=== PATIENT | female | born 1975 | race Caucasian/White ===

== ENCOUNTER 2016-11-27 10:41 | Inpatient (IN) ==
[2016-11-27] MEDS ORDERED: SOLU-MEDROL IV ONE (10:51)
[2016-11-27] MEDS ORDERED: DUONEB (A & A) INH ONE (10:51)
[2016-11-27] MEDS ORDERED: ZOFRAN IV ONE (10:51)
[2016-11-27] MEDS ORDERED: DUONEB (A & A) ONE (10:55)
[2016-11-27 11:16] LABS: ALLEN TEST NO; BE 10.7 mmoll (-3.0-3.0); BLOOD TYPE ARTERIAL; DRAW SITE R BRACHIAL; METHB 1.1 % (0.0-1.5); O2(CT) 16.1 mL/dL (15.0-23.0); SAMPLE BLOOD; SAO2 82.2 % (95.0-100.0); THB 15.1 g/dL (11.5-17.4); pH(98.6) 7.37 (7.35-7.45)
[2016-11-27 11:17] LABS: MODALITY CANNULA
[2016-11-27 11:20] LABS: PCO2(98.6) 68 mmHg (35-45); PO2(98.6) 43 mmHg (60-100)
[2016-11-27 11:25] LABS: BASO% 0.3 % (0.0-0.8); EOS# 0.93 X1000 (0.0-0.7); EOS% 5.3 % (0.0-10.0); HEMATOCRIT 54.9 % (37.0-47.0); HEMOGLOBIN 15.2 g/dL (12.0-16.0); LYMPH# 2.34 X1000 (1.2-3.4); LYMPH% 13.3 % (20.5-51.1); MANUAL DIFF NEEDED? NO; MCH 22.8 PG (27-31); MCHC 27.7 g/dL (33-37); MCV 82.4 FL (81-99); MONO% 5.7 % (1.7-9.3); MPV 9.7 FL (7.4-10.4); NEUT% 75.4 % (42.2-75.2); PLT 236 X1000 (130-400); RBC 6.66 XMIL (4.2-5.4)
[2016-11-27 11:37] LABS: INR 1.02; PROTIME 10.7 Seconds (9.2-11.7); PTT 27.5 Seconds (22.0-36.0)
[2016-11-27 11:48] LABS: AGAP 8; ALBUMIN 3.6 g/dL (3.5-5.0); ALKALINE PHOSPHATASE 134 U/L (32-104); BUN 10 mg/dL (8-22); CALCIUM 9.2 mg/dL (8.8-10.2); CHLORIDE 95 mmol/L (98-107); CK PROFILE 32 U/L (24-173); COSMO 277; GOT 13 U/L (10-30); GPT 10 U/L (10-36); MAGNESIUM 2.4 mg/dL (1.5-2.7); POTASSIUM 4.3 mmol/L (3.5-5.1); SODIUM 139 mmol/L (136-145); TCO2 36 mmol/L (25-35); TOTAL BILIRUBIN 0.33 mg/dL (0.20-1.00); TOTAL PROTEIN 6.9 g/dL (6.3-8.3)
--- NOTE | 2016-11-27 13:01 | Diag Imaging Result Doc PS360 ---
EXAM: FLAT/UPRIGHT ABD/1 VIEW CHEST INDICATION: Abd pain/hernia, SOB TECHNIQUE: 3 views COMPARISON: Chest radiograph dated 06/11/2016 FINDINGS: There are nonspecific bowel gas patterns. There is probably patchy small bowel gas. There is nothing necessarily specific for obstruction. There is no evidence of large volume free abdominal gas. There is no evidence of organomegaly. There is a small right pleural effusion with adjacent atelectasis. The lungs are clear, otherwise. There is stable cardiomegaly. IMPRESSION: 1.Nonspecific abdomen. 2.Small right pleural effusion. 3.Stable cardiomegaly. Electronically signed by Arpan Lyles 11/27/2016 12:58 PM
--- NOTE | 2016-11-27 13:17 | PROVIDER DOCUMENTATION ---
This chart was entered by Taylor Arellano Scribe, acting as scribe for Constanza Alcantara MD. HPI-General Adult - General Stated Complaint: vomiting sob Time Seen by Provider: 11/27/16 10:49 Source: patient Allergies/Adverse Reactions: Patient Allergies Allergy/AdvReac Type Severity Reaction Status Date / Time cyclobenzaprine HCl * Allergy HIVES Verified 06/07/16 21:33 [From Flexeril] lurasidone HCl * Allergy ANAPHYLAXIS Verified 06/07/16 21:33 [From Latuda] vancomycin Allergy HIVES Verified 06/08/16 02:28 Home Medications: Home Medication List Medication Instructions Recorded Confirmed Last Taken Type Fluticasone/Salmeterol [Advair 2 puff INH DAILY 03/11/16 06/07/16 03/11/16 History 500-50 Diskus] Furosemide 40 mg PO DAILY 03/11/16 06/07/16 03/11/16 History LISINOpril [Prinivil] 5 mg PO DAILY 03/11/16 06/07/16 03/11/16 History Paroxetine HCl 30 mg PO DAILY 03/11/16 06/07/16 03/11/16 History Potassium Chloride 10 meq PO DAILY 03/11/16 06/07/16 03/11/16 History Roflumilast [Daliresp] 500 mcg PO DAILY 03/11/16 06/07/16 03/11/16 History Tiotropium Springer Inhaler 1 puff INH DAILY 03/11/16 06/07/16 03/11/16 History [Spiriva] Albuterol Sulfate [Proair Hfa] 8.5 gm IH DIRECTED 06/07/16 06/07/16 Unknown History Lamotrigine 25 mg PO DIRECTED 06/07/16 06/07/16 Unknown History Azithromycin [Zithromax] 250 mg PO DAILY #7 tablet 06/11/16 Unknown Rx Pantoprazole [Protonix] 40 mg PO DAILY@0700 #30 tablet 06/11/16 Unknown Rx Prednisone 20 mg PO DAILY #5 tablet 06/11/16 Unknown Rx - History of Present Illness -Gen Adult Nature of Presenting Problems: Pt is a 41 year old female who came to the ED with a cc of SOB and vomiting. Pt is a smoker and has a abnormality of the heart. Pt has been vomiting since one week. Pt reports she has been losing weight and has trouble walking without getting SOB. Location of Pain/Injury: reports: abdomen Pain Radiation: reports: no radiation Quality of Pain: reports: cramping Severity: reports: mild Onset/Duration: reports: 1 week ago Timing: reports: still present Context/Activities at Onset: reports: none Associated Symptoms: reports: shortness of breath, vomiting, weakness, trouble walking Similar Symptoms Previously?: Yes Recently seen or treated by another doctor?: No Review of Systems - Adult - REVIEW OF SYSTEMS - ADULT Constitutional: reports: weight loss. denies: chills, fever Eyes: reports: no symptoms reported Ears, Nose, Mouth & Throat: reports: no symptoms reported Cardiovascular: denies: chest pain, syncope Respiratory: reports: shortness of breath, wheezing. denies: cough, pleurisy Gastrointestinal: reports: abdominal pain, nausea, vomiting. denies: difficulty swallowing, frequent heartburn Genitourinary: reports: no symptoms reported Musculoskeletal: reports: no symptoms reported Integumentary: reports: no symptoms reported Neurological: reports: no symptoms reported Psychiatric: reports: no symptoms reported Endocrine: reports: no symptoms reported Hematologic/Lymphatic: reports: no symptoms reported Allergic/Immunologic: reports: no symptoms reported All Other Systems: Reviewed and Negative Past History - Adult - PAST MEDICAL HISTORY-ADULT Review of Records: reports: Old Records Reviewed, Nursing Assessment Review Major Childhood Illnesses: reports: denies history Cardiovascular: reports: cardiac disease, HTN, other (heart failure ) Respiratory: reports: asthma, COPD Gastrointestinal: reports: denies history Obstetrical/Gynecological: reports: denies history Genitourinary: reports: denies history Musculoskeletal: reports: chronic pain (back pain ) Neurological: reports: CVA, other (brain aneurysm ) Psychiatric: reports: depression Endocrine/Immune: reports: denies history Other Conditions: reports: denies history - PRIOR SURGERIES/PROCEDURES Surgical/Procedure History: reports: BTL - PRIOR HOSPITALIZATIONS Prior Hospitalizations: reports: for other non-related - IMMUNIZATION STATUS Childhood Immunizations: See Nurse Assessment Flu Vaccine: See Nurse Assessment - FAMILY HISTORY Family History: reviewed, not pertinent - SOCIAL HISTORY Smoking: cigarettes, greater than 1 pack/day Provider spent 3-5 mins advising pt. on dangers of tobacco.: Discussed manners to quit use, and f/u contacts for add'l counseling. Physical Exam-General - PHYSICAL EXAM-ADULT Initial Vital Signs Reviewed: Yes - CONSTITUTIONAL General Appearance: appears well, alert, no apparent distress - EYES Eyes: PERRL/EOMI, pink conjunctivae - HEAD, EARS, NOSE, MOUTH & THROAT HENMT: normocephalic/atraumatic, moist mucous membranes - NECK Neck: non-tender, full range of motion - RESPIRATORY Respiratory: chest non-tender, rhonchi, wheezing - CARDIOVASCULAR Cardiovascular: normal peripheral pulses, regular rate, rhythm - GASTROINTESTINAL (ABDOMEN) Abdominal Exam: soft, hernia - MUSCULOSKELETAL Back Exam: normal inspection, no CVA tenderness Extremity: normal range of motion, non-tender - SKIN Integumentary: warm/dry - NEUROLOGIC Neurologic: grossly normal - PSYCHIATRIC Psych/Mental Status: normal mood/affect, normal thought content, normal thought process, oriented x 3 Progress - PLAN OF CARE/RESULTS Progress/Plan/Lab Results: Vital Signs - 8 hr 11/27/16 10:54 11/27/16 11:23 11/27/16 11:43 Temperature 98.4 F Pulse Rate 114 H 107 H 111 H Respiratory Rate 24 22 Blood Pressure 112/72 O2 Sat by Pulse Oximetry 78 L 82 L 85 L 11/27/16 11:46 11/27/16 13:05 Temperature Pulse Rate 111 H 107 H Respiratory Rate 21 20 Blood Pressure O2 Sat by Pulse Oximetry 85 L 92 L Laboratory Results - last 24 hr 11/27/16 11/27/16 11/27/16 10:59 10:59 10:59 WBC 17.65 H RBC 6.66 H Hgb 15.2 Hct 54.9 H MCV 82.4 MCH 22.8 L MCHC 27.7 L RDW Std Deviation 26.0 H Plt Count 236 MPV 9.7 Neut % (Auto) 75.4 H Lymph % (Auto) 13.3 L [place] % (Auto) 5.7 Eos % (Auto) 5.3 Baso % (Auto) 0.3 Neut # (Auto) 13.32 H Lymph # (Auto) 2.34 [place] # (Auto) 1.00 H Eos # (Auto) 0.93 H Baso # (Auto) 0.06 PT INR PTT (Actin FS) D-Dimer 1.06 H Specimen Type Sample Site pH pCO2 pO2 HCO3 Base Excess Oxyhemoglobin ABG O2 Sat (Calculated) ABG O2 Saturation ABG Carboxyhemoglobin ABG Methemoglobin Kvng Test Total Hemoglobin Lactate Liter Flow Blood Gas Modality Sodium 139 Potassium 4.3 Chloride 95 L Carbon Dioxide 36 H Anion Gap 8 BUN 10 Creatinine 0.3 L Estimated GFR/1.73 m2 > 60 BUN/Creatinine Ratio 33 Glucose 107 H Calculated Osmolality 277 Calcium 9.2 Magnesium 2.4 Total Bilirubin 0.33 AST 13 ALT 10 Alkaline Phosphatase 134 H Creatine Kinase 32 Troponin T Cya-F-Kxhojylqrya Pept Total Protein 6.9 Albumin 3.6 Globulin 3.3 Albumin/Globulin Ratio 1.1 11/27/16 11/27/16 11/27/16 10:59 10:59 10:59 WBC RBC Hgb Hct MCV MCH MCHC RDW Std Deviation Plt Count MPV Neut % (Auto) Lymph % (Auto) [place] % (Auto) Eos % (Auto) Baso % (Auto) Neut # (Auto) Lymph # (Auto) [place] # (Auto) Eos # (Auto) Baso # (Auto) PT 10.7 INR 1.02 PTT (Actin FS) 27.5 D-Dimer Specimen Type Sample Site pH pCO2 pO2 HCO3 Base Excess Oxyhemoglobin ABG O2 Sat (Calculated) ABG O2 Saturation ABG Carboxyhemoglobin ABG Methemoglobin Kvng Test Total Hemoglobin Lactate Liter Flow Blood Gas Modality Sodium Potassium Chloride Carbon Dioxide Anion Gap BUN Creatinine Estimated GFR/1.73 m2 BUN/Creatinine Ratio Glucose Calculated Osmolality Calcium Magnesium Total Bilirubin AST ALT Alkaline Phosphatase Creatine Kinase Troponin T < 0.010 Xqc-G-Jttjkmpyqka Pept 168 Total Protein Albumin Globulin Albumin/Globulin Ratio 11/27/16 11:15 WBC RBC Hgb Hct MCV MCH MCHC RDW Std Deviation Plt Count MPV Neut % (Auto) Lymph % (Auto) [place] % (Auto) Eos % (Auto) Baso % (Auto) Neut # (Auto) Lymph # (Auto) [place] # (Auto) Eos # (Auto) Baso # (Auto) PT INR PTT (Actin FS) D-Dimer Specimen Type ARTERIAL Sample Site R BRACHIAL pH 7.37 pCO2 68 H* pO2 43 L* HCO3 32.6 H Base Excess 10.7 H Oxyhemoglobin 76.0 L* ABG O2 Sat (Calculated) 16.1 ABG O2 Saturation 82.2 L ABG Carboxyhemoglobin 6.40 H* ABG Methemoglobin 1.1 Kvng Test NO Total Hemoglobin 15.1 Lactate 0.80 Liter Flow 5.0 Blood Gas Modality CANNULA Sodium Potassium Chloride Carbon Dioxide Anion Gap BUN Creatinine Estimated GFR/1.73 m2 BUN/Creatinine Ratio Glucose Calculated Osmolality Calcium Magnesium Total Bilirubin AST ALT Alkaline Phosphatase Creatine Kinase Troponin T Bia-W-Wxgwhaxtkna Pept Total Protein Albumin Globulin Albumin/Globulin Ratio Orders Category Date Time Status Cardiac Monitoring DIRECTED Care 11/27/16 10:51 Active Oxygen Therapy- ED Nursing DIRECTED Care 11/27/16 10:51 Active Saline Loc NOW Care 11/27/16 10:51 Active ANGIOGRAM/PULMONARY ARTERIES [CT] Stat Exams 11/27/16 13:12 Ordered FLAT/UPRIGHT ABD/1 VIEW CHEST [RAD] Stat Exams 11/27/16 10:51 Completed ABG [RESP] Routine Lab 11/27/16 11:15 Completed BLOOD CULTURE [BLDCUL] Stat Lab 11/27/16 10:59 Ordered CBC WITH ELECTRONIC DIFF [HEME] Stat Lab 11/27/16 10:59 Completed CK PROFILE [SP CHEM] Stat Lab 11/27/16 10:59 Completed COMPREHENSIVE METABOLIC PANEL [CHEM] Stat Lab 11/27/16 10:59 Completed D-DIMER [CHEM] Stat Lab 11/27/16 10:59 Completed MAGNESIUM [CHEM] Stat Lab 11/27/16 10:59 Completed PRO B-NATRIURETIC PEPTIDE Stat Lab 11/27/16 10:59 Completed PROTIME WITH INR [COAG] Stat Lab 11/27/16 10:59 Completed PTT [COAG] Stat Lab 11/27/16 10:59 Completed TROPONIN T Stat Lab 11/27/16 10:59 Completed Albuterol 2.5MG/Ipratrop 0.5MG [Duoneb (A & A)] Med 11/27/16 10:55 Discontinued 9 ml .ROUTE .STK-MED ONE Albuterol 2.5MG/Ipratrop 0.5MG [Duoneb (A & A)] Med 11/27/16 10:51 Discontinued 9 ml INH NOW ONE Methylprednisolone Sod Succ [Solu-Medrol] Med 11/27/16 10:51 Discontinued 125 mg IV NOW ONE Ondansetron [Zofran] Med 11/27/16 10:51 Discontinued 8 mg IV NOW ONE Aerosol Treatments Routine Oth 11/27/16 10:56 Completed Aerosol Treatments Stat Oth 11/27/16 10:56 Completed EKG [EKG] Stat Ther 11/27/16 10:51 Ordered Result Diagrams: 11/27/16 10:59 11/27/16 10:59 - EKG 1 Time of EKG reading by physician:: 11:11 EKG Read and Signed by:: Constanza Alcantara EKG Interpretation (*Must complete 3 of following elements*): Abnormal Rate: 103 (biatrial enlargement; left axis deviation; pulmonary disease pattern ; septal infarct) Rhythm: sinus tachycardia - XRAY 1 XRAY Study: Abdomen (1. nonspecific abdomen. 2. small right pleural effusion 3. stable cardiomegaly) - CONSULTS/PCP/HOSPITALIST Notification #1 *Consult/PCP/Hospitalist*: Dr. Steen/Sesar Time Discussed: 13:17 Consult Disposition: Admit Departure - Departure Date of Disposition Decision: 11/27/16 Time of Disposition Decision: 13:15 DIAGNOSIS: Respiratory distress, Dehydration, Nausea & vomiting Disposition: ADMITTED INPATIENT 09 Certified Medical Emergency: Emergent Condition: Poor Referrals and Follow-Ups: None,PCP [Primary Care Provider] - - Critical Care Note This patient required my direct & personal management of CC.: Yes Total Time (mins): 35 Critical Care Statement: This patient required my direct personal management to treat or rule out processes, the absence of which, could potentiallly result in sudden, clinically significant life or limb threatening deterioration. This chart was documented by the indicated scribe, (Taylor Arellano Scribe) and accurately reflects the services I performed and decisions made by me, Constanza Alcantara MD, as attested by the provider's signature.
[2016-11-27] MEDS ORDERED: LEVAQUIN 750 MG/D5W 750 MG/150 ML IVPB IV ONE (13:23)
[2016-11-27] MEDS ORDERED: SODIUM CHLORIDE 0.9% INJ SCH (14:30)
[2016-11-27 14:54] LABS: ALLEN TEST YES; BLOOD TYPE ARTERIAL; DRAW SITE R RADIAL; O2(CT) 18.3 mL/dL (15.0-23.0); PO2(98.6) 57 mmHg (60-100); SAMPLE BLOOD; THB 14.9 g/dL (11.5-17.4); pH(98.6) 7.33 (7.35-7.45)
[2016-11-27 14:56] LABS: MODALITY NRB
[2016-11-27 14:57] LABS: PCO2(98.6) 70 mmHg (35-45)
--- NOTE | 2016-11-27 15:10 | Diag Imaging Result Doc PS360 ---
EXAM: ABD/PELVIS/PULM ARTERIES INDICATION: SOB, HERNIA, N/V TECHNIQUE: In addition to standard thin section CTA images through the chest, 3-D MIP reformations were obtained. Conventional CT abdomen and pelvis images were performed with IV and oral contrast. COMPARISON: CT abdomen and pelvis dated 05/27/2014. No prior CT chest is available for comparison. FINDINGS: CTA CHEST: There is no evidence of pulmonary embolism. There is no evidence of thoracic aortic dissection or aneurysm. There is marked cardiomegaly. There is no evidence of significant mediastinal or hilar lymphadenopathy. There is a moderate-sized right pleural effusion and right basilar atelectasis. There is bronchiectasis at both lung bases. There is some mucous plugging in the dilated bronchi at the right lung base. There is mild vaguely nodular infiltrate at the right lower lung zone. There is a 7 mm nodule at the left lung base that probably represents an inflammatory nodule. ABDOMEN/PELVIS: Images of the upper abdomen included on the CTA chest in the early arterial phase reveal a prominent enhancing mass in the left hepatic lobe measuring up to 5.2 x 3.6 cm axially. There are two much smaller enhancing nodules in the right hepatic lobe with the largest measuring up to 1.4 cm also seen on the early arterial phase. All of these are very difficult to detect on the venous phase. The two smaller lesions cannot be seen on the venous phase. There may be a faint blush of contrast corresponding to the larger mass in the left hepatic lobe on the venous phase. On the early arterial phase the larger mass exhibits central low attenuation suggesting a central scar. This can be seen with focal nodular hyperplasia. Consider a follow-up MRI with and without contrast for better characterization. It is unclear if these lesions were present on the previous study as no early arterial phase was performed previously. There is a small stone in the gallbladder lumen. There is no pericholecystic inflammatory change. The adrenal glands, spleen, pancreas, and kidneys are grossly unremarkable. There is a massive ventral abdominal wall hernia that contains multiple loops of small bowel as well as part of the colon and a small portion of the antrum of the stomach. This hernia was larger than the previous study as well but it appears larger on the current study. However, there is no evidence of bowel obstruction. The reproductive tract is unremarkable. The urinary bladder is unremarkable. IMPRESSION: 1.No evidence of pulmonary embolism. 2.Moderate right pleural effusion and right basilar atelectasis. 3.Bibasilar bronchiectasis. 4.Suggestion of mild nodular infiltrate at the right lung base and what appears to be a tiny inflammatory nodule at the left lung base. 5.Marked cardiomegaly. 6.Several enhancing liver lesions seen on early arterial phase. Please see above discussion. 7.Massive ventral abdominal wall hernia containing multiple loops of bowel and a small portion of the stomach that appears larger than the previous study. 8.No evidence of bowel obstruction. 9.Other incidental/nonacute findings detailed above. Electronically signed by Arpan Lyles 11/27/2016 3:08 PM
[2016-11-27] MEDS: DUONEB (A & A) INH SCH ×3 (15:15→23:42)
[2016-11-27 15:34] LABS: URINE MICRO REVIEW NEEDED? NO; URINE SOURCE CATH
[2016-11-27 15:37] LABS: BILIRUBIN URINE NEGATIVE (NEGATIVE); BLOOD URINE SMALL (NEGATIVE); COLOR YELLOW; GLUCOSE URINE NEGATIVE (NEGATIVE); LEUKOCYTES URINE NEGATIVE (NEGATIVE); NITRITE URINE NEGATIVE (NEGATIVE); PH URINE 8.5; PROTEIN URINE 30 mg/dL (NEGATIVE); SP GRAVITY URINE 1.016; TURBIDITY URINE CLEAR (CLEAR); UROBILINOGEN URINE NORMAL (NORMAL)
[2016-11-27 15:38] LABS: UR EPITHELIAL CELLS <10 /HPF (<10); URINE BACTERIA 1+ /HPF; URINE WBC <10 /HPF (<10)
[2016-11-27] MEDS: MERREM 500 MG in NS 50 ML IV SCH ×2 (15:51→23:09)
--- NOTE | 2016-11-27 16:26 | HISTORY AND PHYSICAL ---
SEPARATOR OPERATOR [employer] AND PRIMARY CARE PROVIDER: Dr. Fischer. TOMBSTONE SETTER: Dr. Levine. CHIEF COMPLAINT: Shortness of breath. HISTORY OF PRESENT ILLNESS: Mrs. Collins is an unfortunate, 41-year-old female with a history of Ebstein anomaly with congestive heart failure, massive ventral abdominal hernia, chronic hypoxic respiratory failure and others, who presents to the ER with multiple weeks of shortness of breath. She also reports that she has been throwing up over the past week. Her shortness of breath has been progressively worse. She is having worsening peripheral cyanosis and central cyanosis. At home her O2 sats range anywhere from 70-90 on 5 L of oxygen. She reports night sweats, fevers, and chills. Shortness of breath progressed to the point where she came to the ER for evaluation. In the ER she had an ABG done which revealed acute hypoxia, as well as chronic hypercapnia. ER attempted to place her on BiPAP but she refused because she is claustrophobic and she said the only way that she will wear a BiPAP is with IV Ativan. She also had a CT of the pulmonary arteries, abdomen, and pelvis done with IV contrast which showed right basilar atelectasis, bibasilar bronchiectasis, nodular infiltrate in the right lung base, marked cardiomegaly, enhancing liver lesions, and massive ventral abdominal wall hernia. She is currently on 100% non-rebreather, saturating in the mid 70s. She states that if she requires intubation she will choose that. At this point she is hemodynamically stable and we are going to admit her to the ICU for further treatment and evaluation. PAST MEDICAL HISTORY: 1. Ebstein anomaly. 2. Massive ventral hernia. 3. Nicotine dependence. 4. Diastolic heart failure. 5. Chronic hypoxic respiratory failure. 6. Chronic hypercarbic respiratory failure. 7. Depression. 8. Hypertension. 9. Hyperlipidemia. 10. COPD. PAST SURGICAL HISTORY: She has had a tubal ligation and aneurysmal clipping of the brain. SOCIAL HISTORY: Patient smokes a pack a day. Denies alcohol or drug use. She has a common-law . Son is at the bedside. FAMILY HISTORY: Noncontributory. REVIEW OF SYSTEMS: Fourteen-point review of systems obtained and found to be negative with the exception of the HPI. ALLERGIES: Cyclobenzaprine, Latuda, and vancomycin. HOME MEDICATIONS: Currently being compiled. PHYSICAL EXAMINATION: VITAL SIGNS: Blood pressure is 110/73, heart rate is 112, respiratory rate is 24, O2 saturation is 74% on 100% non-rebreather. GENERAL: This is a chronically ill and disheveled appearing, 41-year-old female, lying in hospital bed. Mild to moderate respiratory distress. NEUROLOGIC: She is awake, alert, oriented and follows commands without focal deficits. HEENT: Head is atraumatic and normocephalic. Her pupils are equal, round, and reactive to light. Oral mucosa is moist. Trachea is midline. Neck is supple. CHEST: Coarse bilaterally with severely diminished airflow throughout. CV: Tachy but regular. S1, S2 is noted. GI: Massive ventral hernia is noted but overall her belly is soft and nondistended. There is no tenderness to palpation. EXTREMITIES: Patient has peripheral cyanosis and clubbing. No edema. She also has central cyanosis about her lips. DIAGNOSTIC DATA: CT of the chest, abdomen, and pelvis, please see HPI. Chest x -ray shows right pleural effusion and cardiomegaly. WBC 17.65, hemoglobin 15.2, hematocrit 54.9 , platelet count is 236,000. INR 1.02. D-dimer 1.06. PH 7.33, pCO2 72, PO2 57, bicarb 30.9, oxyhemoglobin 87.5, carboxyhemoglobin 3.9. Sodium 139, potassium 4.3, chloride 95, CO2 36, anion gap 8, BUN 10, creatinine 0.3, glucose 107, calcium 9.2, magnesium 2.4. Total bilirubin 0.33, ALT 10, alkaline phosphatase 134, albumin 3.6. ASSESSMENT AND PLAN: 1. Acute on chronic hypercarbic and hypercapnic respiratory failure: The patient will be going to the ICU. We will go ahead and treat her for pneumonia with broad- spectrum antibiotics. Blood cultures have already been obtained and we will consult pulmonary critical care. We will continue oxygen with BiPAP if possible. If not, she may need intubation. We will also consult cardiology given her probable congestive heart failure. She did get a dose of Lasix in the ER. She also got some steroids IV in the ER. 2. Community-acquired pneumonia: As above. Continue antibiotics, breathing treatments, and aggressive pulmonary toilet. We will check a chest x-ray in the morning. Pulmonary has been consulted. 3. Sepsis: Meets criteria with tachycardia and leukocytosis. Blood cultures have been obtained. Broad-spectrum antibiotics have been initiated. Lactic acids via ABGs are within normal limits. We will make sure she is on fluids. 4. Lis's anomaly with congestive heart failure: Last echocardiogram we have on file is in 2014. We will go ahead and order an echocardiogram and consult cardiology. 5. Questionable liver masses. We will check an AFP, CA-19-9, and CEA. May need a GI versus surgical consultation. The only LFT that is elevated is her alkaline phosphatase. 6. Hypertension: Continue any antihypertensives once her medications have been reconciled. 7. Deep vein thrombosis prophylaxis will be provided with Lovenox. Further recommendations to follow. Dictated by YARON Khan for Ariana Stapleton MD cc: YARON Khan MD [facility]
--- NOTE | 2016-11-27 18:10 | CONSULTATION ---
DATE OF CONSULTATION: 11/27/2016 HISTORY OF PRESENT ILLNESS: Ms. Collins is a 41-year-old lady was diagnosed to have Ebstein anomaly and heart failure, Ebstein anomaly was diagnosed when she was 12, has multiple other medical problems including chronic respiratory failure, massive ventral abdominal hernia who has been throwing up for the last 2-3 months. Patient's family states that she can barely put food down and she throws up and she has also noticed some fevers which have been intermittently present for the last few months. She has also had cough with mucoid to mucopurulent expectoration. She has also had some chills. Shortness of breath progressively worsened. She came to the emergency room. Was admitted. She also has seen Dr. Fischer for her chronic respiratory failure and has hypercapnia. She has been started on BiPAP, she also received a dose of Lasix. CT scan of the pulmonary arteries abdomen were done which revealed right basilar bronchiectasis, bibasilar bronchiectasis, nodular infiltrate in the right lung with significant cardiomegaly and massive ventral abdominal hernia. REVIEW OF SYSTEMS: 14-point review of systems was done. GI: As above. : There is no dysuria or hematuria. Respiratory: As above. Cardiovascular: As above. Central nervous system: No focal weakness to suggest a CVA or TIA. PAST MEDICAL HISTORY: 1. Diagnosed to have Ebstein anomaly. 2. History of diastolic heart failure. 3. Massive ventral hernia. 4. Chronic hypercarbic respiratory failure. 5. Depression. 6. Hyperlipidemia. 7. COPD. 8. Was diagnosed to have an aneurysm at [facility]. However patient's family states that she was noted to have an abscess which was drained intracranial in [facility], subsequently had a Port-A-Cath requiring intermediate project manager intravenous antibiotics. This was at least 4 years back. SOCIAL HISTORY: The patient smokes a pack of cigarettes a day. FAMILY HISTORY: Noncontributory. ALLERGIES: She is allergic to cyclobenzaprine, Latuda, vancomycin. PHYSICAL EXAMINATION: Vital Signs: Blood pressure 110/73, heart rate 110, respiratory rate 24, oxygen saturation 74% 100% non-rebreather is on BiPAP at the moment. Cardiovascular: Jugular venous pressure was normal, first and second heart sounds were heard. RESPIRATORY: Decreased air entry with bibasilar coarse crepitations.Abdomen: Ventral abdominal hernia. Bowel sounds heard. Central nervous system: Was alert, moving all 4 extremities. Extremities: Cyanosis noted. DATA: CT scan of the abdomen and pelvis done as above. Please see detailed report. Chest x- ray shows right pleural effusion, cardiomegaly. CT scan abdomen, pelvis also revealed no pulmonary embolism. There is bibasilar bronchiectasis with mild nodular infiltrate right lung with marked cardiomegaly. LABORATORY EXAMINATION: WBC 17.65, hemoglobin 15.2, hematocrit 54, platelet count 236,000. Sodium 139, potassium 4.3, BUN 10, creatinine 0.3, cardiac enzymes negative. Blood gases pH 7.33, pCO2 70. ASSESSMENT AND PLAN: 1. Ms. Rosa Collins is a 41-year-old lady who diagnosed to have Ebstein anomaly in the past at the age of 12, history of diastolic heart failure, has had chronic respiratory issues with respiratory failure chronic as well as bronchiectasis, has large ventral abdominal hernia is admitted with increasing shortness of breath and is noted to be hypercapnic. From a cardiac standpoint will get an echocardiogram to reassess cardiac and valvular function. Cardiac enzymes were negative. Her electrocardiogram revealed biatrial enlargement with significant right atrial enlargement. Nonspecific ST-T changes. Left axis deviation. From a cardiac standpoint will get an echocardiogram. I am not making any other changes. 2. She has been having significant nausea, vomiting, has large ventral hernia and she could well have aspirated to account for this worsening of her respiratory status. Pulmonary has been consulted. She is seen and followed by Dr. Fischer as an outpatient. 3. Cultures. Pedro blood cultures pending. 4. She has been started on levofloxacin and piperacillin. Dr. De Luna has been consulted. She has also been started on methylprednisone. 5. In the past she has had intracranial abscess which was drained in [facility] 3-4 years back per family. She does not have any focal deficits at the present time. 6. She has hypercarbic respiratory failure with bronchiectasis with chronic obstructive pulmonary disease, she is on BiPAP. 7. She has a questionable liver mass and abnormal liver function tests could be secondary to diastolic heart failure but given her ongoing nausea and vomiting will consult Gastroenterology as well. Thank you for the consult. Will follow hospital course. cc: Edin Levine MD
[2016-11-27] MEDS: SOLU-MEDROL IV SCH (18:28)
[2016-11-27] MEDS: ZOSYN 3.375 GM/NS 3.375 GM/50 ML IVPB IV SCH ×2 (18:28→23:34)
--- NOTE | 2016-11-27 18:49 | CONSULTATION ---
DATE OF CONSULTATION: 11/27/2016 REQUESTING PROVIDER: YARON Khan Thank you very much for asking me to see this very unfortunate 41-year-old female white. DIAGNOSES: 1. Chronic obstructive pulmonary disease. 2. Acute on chronic respiratory failure. 3. 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 4. Chronic hypoxemic respiratory failure. 5. Polycythemia secondary to above. 6. Abnormal CAT scan with filling defect, possible neoplasm. 7. History of cerebral aneurysm. RECOMMENDATIONS: I will give her supplemental oxygen, BiPAP, inhaled beta agonist, Lovenox as well as broad-spectrum antibiotics. Will try to diurese her gently, monitor gas exchange and work of breathing. Smoking cessation was discussed with her. Will notify the pulmonary providers in the morning of the consult. 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 She also is a cigarette smoker with COPD, chronic hypoxemia on 5 L of nasal oxygen at home. She presented to the emergency room today with respiratory distress, cough and congestion and subsequently was admitted to the ICU after hypercapnic respiratory failure with moderate respiratory acidosis. I am consulted to assist in her care. She relates some productive cough. She does continue to smoke approximately 1 pack of cigarettes a day. REVIEW OF SYSTEMS: Except for the features mentioned above were negative for weight loss, night sweats, weakness or anorexia. No ENT symptoms of odynophagia, dysphagia, epistaxis, painful swallowing. No eye symptoms of blindness, blurring or diplopia. No other cardiac or pulmonary symptoms other than mentioned. There is ventral hernia symptoms that has been surgically evaluated. She does not have obstructive symptoms however. No hematuria, polyuria, nocturia, dysuria. No joint or muscle pain, stiff, swelling, no skin rash, itch, bruises, no seizures, loss of consciousness or paralysis. Except features mentioned above, all other symptoms on the review of systems negative. FAMILY HISTORY: Noncontributory. There is ischemic heart disease in father, COPD in her mother however. SOCIALLY: She is . Lives at home. medically disabled, smokes approximately a pack cigarettes a day. PAST MEDICAL HISTORY: Is positive for ventral hernia, COPD, biventricular failure, respiratory failure, depression as well as hyperlipidemia and Ebstein abnormality of the heart . PHYSICAL EXAM: Vital signs: Shows a blood pressure of 110/73 with pulse 112, respirations 14, temperature 98.2 degrees. HEENT: Exam reveals no thyromegaly or adenopathy. Pupils are equal and reactive. Extraocular muscles are intact. Neck: Supple. No bruits. No thyromegaly. No JVD. Chest: Reveals bilateral equal breath sounds with some prolongation expiratory phase, forced expiratory wheezes. Cardiac Exam: Reveals a regular rhythm. There is no appreciable murmur. There is no appreciable gallop. There is no appreciable friction rub. The chest reveals bilateral equal breath sounds with rhonchi and wheezes and expiratory prolongation excursions are symmetrical however. Abdomen: Soft. There is a massive ventral hernia. It is reducible. There is positive bowel sounds. No organomegaly. Extremities: Reveal 2+ edema, there is no clubbing. Neurologic: She is awake and conversant. LAB: Sodium is 139, potassium 4.3, chloride 95, CO2 36, BUN 10, creatinine 0.6, glucose 107. White count 17,600 with hemoglobin 15.2, hematocrit of 44.5, platelets of 236,000. Chest radiograph shows cardiomegaly with right pleural effusion. ABG shows a 7.30 pH with a 70 CO2 and 57 O2.
[2016-11-27] MEDS: TYLENOL PO PRN (20:37)
[2016-11-27] MEDS ORDERED: SODIUM CHLORIDE 0.9% INJ PRN ×2 (22:19→22:32)
[2016-11-27] MEDS ORDERED: PHENERGAN IV PRN (22:19)
[2016-11-27] MEDS ORDERED: LAMICTAL PO SCH (22:22)
[2016-11-27] MEDS: PHENERGAN IV PRN (22:44)
[2016-11-27] MEDS: LAMICTAL PO SCH (22:50)
[2016-11-28] MEDS: TYLENOL PO PRN ×4 (00:40→22:16)
[2016-11-28] MEDS: DUONEB (A & A) INH SCH ×6 (03:28→23:10)
[2016-11-28] MEDS: SOLU-MEDROL IV SCH ×3 (03:36→19:07)
[2016-11-28 04:55] LABS: ALLEN TEST YES; BE 7.4 mmoll (-3.0-3.0); BLOOD TYPE ARTERIAL; DRAW SITE R RADIAL; PO2(98.6) 97 mmHg (60-100); SAMPLE BLOOD; SRATE 20 BPM; pH(98.6) 7.37 (7.35-7.45)
[2016-11-28 05:02] LABS: MODALITY BI PAP; PCO2(98.6) 60 mmHg (35-45)
[2016-11-28 05:03] LABS: BASO% 0.2 % (0.0-0.8); HEMATOCRIT 48.8 % (37.0-47.0); HEMOGLOBIN 13.7 g/dL (12.0-16.0); LYMPH# 0.82 X1000 (1.2-3.4); LYMPH% 8.2 % (20.5-51.1); MANUAL DIFF NEEDED? YES; MCH 22.7 PG (27-31); MCHC 28.1 g/dL (33-37); MCV 80.9 FL (81-99); MONO# 0.11 X1000 (0.11-0.59); MONO% 1.1 % (1.7-9.3); MPV 10.2 FL (7.4-10.4); NEUT% 90.5 % (42.2-75.2); PLT 221 X1000 (130-400); RBC 6.03 XMIL (4.2-5.4)
[2016-11-28] MEDS: ZOSYN 3.375 GM/NS 3.375 GM/50 ML IVPB IV SCH ×4 (05:34→23:25)
--- NOTE | 2016-11-28 05:41 | EKG Report ---
Test Performed on : 11/27/2016 4:30:52 PM Test Reason : congenital heart disease Blood Pressure : / mmHG Vent. Rate : 109 BPM Atrial Rate : 109 BPM P-R Int : 180 ms QRS Dur : 108 ms QT Int : 350 ms P-R-T Axes : 070 -82 058 degrees QTc Int : 471 ms Sinus tachycardia. Right atrial enlargement Left axis deviation Low voltage QRS Inferior infarct , age undetermined Cannot rule out Anterior infarct (cited on or before 27-NOV-2016) Abnormal ECG When compared with ECG of 27-NOV-2016 11:11, (Unconfirmed) No significant change was found Confirmed by Aleksandr KRAMER, Danisha De Souza ([id number]) on 11/29/2016 6:02:56 AM
[2016-11-28 05:50] LABS: LYMPHS 4 % (21-51)
[2016-11-28 05:51] LABS: HYPOCHROM 1+; LARGE PLATELETS 1+
[2016-11-28 05:55] LABS: AGAP 15; BUN 11 mg/dL (8-22); CALCIUM 9.8 mg/dL (8.8-10.2); CHLORIDE 99 mmol/L (98-107); COSMO 288; HDL 43 mg/dL (45-65); LDL 97 mg/dL; POTASSIUM 5.4 mmol/L (3.5-5.1); SODIUM 144 mmol/L (136-145); TCO2 30 mmol/L (25-35); TRIGLYCERIDES 89 mg/dL (35-135); VLDL 18 mg/dL
--- NOTE | 2016-11-28 06:00 | Diag Imaging Result Doc PS360 ---
EXAM: CHEST-PORTABLE HISTORY: copd exacerbation TECHNIQUE: Portable COMPARISON: 11/27/2016 FINDINGS: The lungs are well expanded. The heart is enlarged. There is a small right-sided pleural effusion. No consolidation. The appearance is similar to that of the prior exam. IMPRESSION: Stable chest. Electronically signed by Marv Mcclure 11/28/2016 5:58 AM
[2016-11-28] MEDS: NEXIUM IV SCH (06:19)
[2016-11-28] MEDS: PAXIL PO SCH (08:06)
[2016-11-28] MEDS: MERREM 500 MG in NS 50 ML IV SCH (08:06)
[2016-11-28] MEDS: LOVENOX SUBQ SCH (08:07)
--- NOTE | 2016-11-28 09:02 | CONSULTATION ---
DATE OF CONSULTATION: 11/28/2016 CONCLUSION: The patient has been admitted to the hospital with a nodular pneumonia. RECOMMENDATION: I agree with Zosyn. I think meropenem can be discontinued. PRESENT ILLNESS: The patient was admitted to the hospital with dyspnea and chest tightness. She also felt very weak. She had been having night sweats, and she had been vomiting as well. This started approximately 2 weeks ago. The patient also noticed that she had an abscess on her buttock. She states that she has been getting these abscesses for 20 years. IMAGING AND LABORATORY DATA: Chest x-ray shows right pleural effusion, and no consolidation. CT scan of the chest shows pleural effusion, nodular infiltrates in the right lung , and one nodule in the left lower lobe. Laboratory studies show a CBC with a white count that went from 17.65 to 10.03, hemoglobin 13.7 and platelet count 221K. Blood gases show a pH of 7.37, PO2 of 97, pCO2 of 60. Urinalysis showed bacteria, but no white cells. Blood and urine cultures are pending. Creatinine is 0.4. GFR is greater than 60. Liver function studies were normal, except for an alkaline phosphatase of 134. CONTROL ENGINEER HISTORY: She is 3, para 2, AB 1. She does have her menstrual periods, the last one has been 3 weeks ago. She also tells me that she has endometriosis. REVIEW OF SYSTEMS: Eyes and ears: She denies difficulty hearing or seeing. Neck: No stiffness. Respiratory: See above regarding the patient's dyspnea. Cardiovascular: See above. The patient complained of chest tightness, but not real pain. She did not complain of palpitations. GI: As mentioned above, she did have some vomiting, but she has not had diarrhea. : No dysuria or flank pain. Endocrine: She does not have diabetes or thyroid disease. Bones/ joints/muscles: No joint swelling or muscle aching. Neurologic: No seizures or motor or sensory loss. PREVIOUS HOSPITALIZATIONS AND OPERATIONS: She has been admitted for cardiac issues, including congestive heart failure, Ebstein's anomaly. She has also had a breast abscess , and admissions for COPD and asthma. MEDICAL DISEASES: Positive for Ebstein's anomaly of the heart, congestive heart failure, COPD. INFECTIOUS DISEASE HISTORY: Positive for pneumonia, UTI, and brain abscess. FAMILY HISTORY: Positive for cancer, diabetes mellitus, myocardial infarction, and congestive heart failure. SOCIAL HISTORY: The patient lives in [place]. She smoke marijuana as well as regular cigarettes. She does not drink alcoholic beverages. She does not use any other narcotics. She lives with her fiancee. They do not have any pets at home. ALLERGIES: Her chart lists the following allergies: Flexeril, Latuda, and vancomycin. HOME MEDICATIONS: Include albuterol, Spiriva, promethazine, perphenazine, paroxetine, lamotrigine, furosemide, potassium, albuterol, Daliresp, and lisinopril. PHYSICAL EXAMINATION: Vital signs: Temperature is 97.9 degrees, pulse 17, respirations 22, blood pressure 105/61. The patient's weight is listed as 149 pounds. General: This is a somewhat ill- appearing, young female, who is in no acute distress at this time. Head, eyes, ears, nose, and throat: She can hear my spoken words, and see near objects. No drainage noted from the nose or ears. Neck: No meningismus. Thorax: There was a slight increased AP diameter of the chest. Lungs: Clear to auscultation. Cardiovascular: The patient's heart rate was fast. It appeared to be regular. Abdomen had a large abdominal wall hernia. It was not tender. Neurologic: The patient is alert. She can move her extremities. There is no tremor. Her sensation is intact to touch. Her memory, as regarding her medical history, is intact. Integument: On the patient's buttock, she has an abscess, which will be drained today. CONCLUSION: The patient has, seen on CT scan, a nodular infiltrate in the right lower lobe, and one nodule in the left lower lobe. The patient also has a buttock abscess. RECOMMENDATIONS: I agree with treating the patient with Zosyn. I think the meropenem can be discontinued. It should be noted that the patient's white count, since starting antibiotics last night, has dramatically come down to 10,030. I am going to order a test if it has not been ordered. cc: MD BEE Dyer
--- NOTE | 2016-11-28 10:19 | PROGRESS NOTE ---
DATE: 11/28/2016 SUBJECTIVE: A 41-year-old with a history of Lis anomaly and congestive heart failure, massive ventricular abdominal hernia, chronic hypoxic respiratory failure. She is on 5 L O2 at home. Presented to the emergency room with multiple weeks of shortness of breath. She reported that she had been throwing up over the past week. Her shortness of breath got progressively worse. Worsening peripheral cyanosis and central cyanosis. Home O2 saturations ranged from 70-90% on 5 L of oxygen. She reported night sweats, fever, chills, shortness of breath progressing to the point where she came to the emergency room for evaluation. In the ER, ABGs revealed acute hypoxia as well as chronic hypercapnia. The ER attempted to put her on BiPAP but refused because she is claustrophobic. She said that she would wear the BiPAP with Ativan. They had a CT of pulmonary arteries, abdomen, and pelvis done with IV contrast that showed right basilar atelectasis, bibasilar bronchiectasis, nodular infiltrate in the right lung base, marked cardiomegaly, enhanced liver lesions, and massive ventricular abdominal wall hernia. She is currently on 100% nonrebreather in the unit and is doing better. She is complaining of back pain. She was sitting up, sitting style. PAST MEDICAL HISTORY: Once again, reviewed past medical history. Lis anomaly, massive ventral hernia, nicotine dependence, diastolic heart failure, chronic hypoxic respiratory failure, chronic hypercapnic respiratory failure, depression, hypertension, hyperlipidemia, COPD. SURGERIES: She has had tubal ligation and aneurysm clipping of the brain in the past. PHYSICAL EXAMINATION: General: Today, she is sitting up talking. Has a nonrebreather on and breathing comfortably. Able to communicate without problem. Vital signs: Temperature 98.2 degrees, pulse 117, respirations 22, blood pressure 179/147. HEENT: Pupils equal and round. Lungs: Clear anterolateral. Decreased breath sounds at both bases. Is and Os: Urine output was 2609-8185 mL. LABORATORIES: Reviewed. White count 10,030, hematocrit 48, platelet count 221,000. Sodium 144, potassium 5.4, chloride 99, bicarb 30, BUN 11, creatinine 0.4. Note, her carcinoembryonic antigen was 5. CONSULTS: Dr. Velasquez was consulted. Dr. Levine was consulted. ASSESSMENT AND PLAN: 1. The patient has noticed that she has had some abscesses on her buttocks. He has had these abscesses for years. CT scan, nodular infiltrate in the right lower lung but one nodule in the left lower lobe and also has buttock abscesses. We have her on Zosyn. Meropenem can be discontinued per Dr. De Luna. Continue to watch the white count. Clinical course, I think she can move to the regular floor. 2. Respiratory failure. Long history of chronic obstructive pulmonary disease, acute on chronic respiratory failure, Lis anomaly in the heart with biventricular failure, chronic hypoxemic respiratory failure, and polycythemia secondary to above. Her air and gas exchange seems to have improved. 3. Abdominal CAT scan, filling defect, possible neoplasm. We will need to probably explore this. May get oncology involved or gastroenterology. 4. History of cerebral aneurysm which has been clipped. No evidence of pulmonary embolism. Moderate right pleural effusion, right basilar atelectasis, bibasilar bronchiectasis, suggestive of mild nodular infiltrate in the right lung base, what appears to be tiny inflammatory nodule in the left lung base, and marked cardiomegaly. 5. Review of her orders. Continue present course. cc: Kvng Leroy MD
--- NOTE | 2016-11-28 14:11 | ECHO REPORT ---
ORDER DATE: 11/28/2016 INDICATION: Ebstein anomaly, hypertension, COPD, history of diastolic heart failure. FINDINGS: 1. Right atrium is at least mildly enlarged. Notably secondary to Ebstein anomaly there is a apical elongation of the right atrium. Dimension of 4.8 cm. 2. Moderate tricuspid regurgitation. Again apical displacement of tricuspid valves is notified consistent with Ebstein anomaly. RV systolic pressure of 51. 3. Right ventricle appears to be overall smaller in size secondary to the apical displacement of tricuspid leaflets. It is somewhat difficult to visualize. Do not see any clear evidence of significant hypokinesis of the right ventricle. 4. Trace pulmonic insufficiency. 5. Normal left atrial size at 3.2 cm. 6. No mitral valve prolapse. Mild mitral regurgitation. 7. Mild enlargement of the left ventricle with an end-diastolic dimension of 5.8. Mild left ventricular hypertrophy with a posterior and interventricular septal wall thickness 1.0 and 1.2 cm respectively. Mild reduction in LV systolic function with an estimated EF 45%. Global hypokinesis. This is consistent with the echo performed in July 2014 demonstrating an EF of 40-45%. 8. Aortic valve opens well. It is trileaflet. No evidence of stenosis or insufficiency. 9. Aorta appears normal in visualized segments. 10. No pericardial effusion seen. cc: MD Ariana Lui MD
[2016-11-28] MEDS: BENADRYL PO PRN ×2 (17:29→23:23)
[2016-11-28] MEDS: LAMICTAL PO SCH ×2 (19:53→20:30)
--- NOTE | 2016-11-28 20:46 | CONSULTATION ---
DATE OF CONSULTATION: 11/28/2016 REASON FOR CONSULTATION: Abdominal pain. Nausea and vomiting. HISTORY OF PRESENT ILLNESS: This is a 41-year-old white female with an extensive medical history. She has a history of Ebstein anomaly with congestive heart failure. She has a very large ventral abdominal hernia. She has chronic respiratory failure. She reports having increased shortness of breath over the last week or more which has progressively gotten worse. She is on chronic O2 at home at 5 L nasal cannula. She has also reported abdominal pain. It is worse after eating. She reports nausea with occasional vomiting. She states after eating her shortness of breath is worse. She reports having a regular bowel movement. She uses a Qiu laxative. She also takes Zantac 150 mg daily. No reported blood in the stool or black stool. PAST MEDICAL HISTORY: Ebstein anomaly, giant ventral hernia, diastolic heart failure, history of respiratory failure, depression, hypertension, hyperlipidemia, COPD, nicotine dependent. PAST SURGICAL HISTORY: History of tubal ligation, aneurysm clipping in the brain. ALLERGIES: Flexeril causing hives, Latuda causing anaphylaxis, vancomycin causes hives. HOME MEDICATIONS: Albuterol inhaler every 4 hours as needed, Spiriva daily, Phenergan 3 times a day as needed, perphenazine 1 tablet every night, paroxetine 30 mg daily, lamotrigine 100 mg every night, lamotrigine 25 every night, Lasix 40 mg daily, potassium 10 mEq daily, ProAir 2 puffs inhaler every 4 hours as needed, Daliresp 500 mcg daily, Prinivil 5 mg daily. SOCIAL HISTORY: She continues to smoke about a half a pack a day. Denies alcohol use. REVIEW OF SYSTEMS: Per HPI. PHYSICAL EXAM: Vital Signs: Temperature 98.2 degrees, pulse 79, respirations 16, blood pressure 179/147, previous blood pressure was 105/61 and 118/67. General: Patient is awake, alert, no acute distress. She has O2 by mask. HEENT: Normocephalic, atraumatic. Pupils equal, round, reactive to light. Sclerae nonicteric. Respiratory: Lung sounds with some rhonchi. GI: Abdomen with a very large hernia noted although it is soft and no tenderness with palpation. DIAGNOSTIC RESULTS: Laboratory. Hematology. White count 10.03, hemoglobin 13.7, hematocrit 48.8, MCV 80.9, platelets 221,000. Chemistry. Sodium 144, potassium 5.4, chloride 99, CO2 30, BUN 11, creatinine 0.4, glucose 127. Imaging studies. Abdominal pelvis CT showed no evidence of pulmonary embolism. Moderate right pleural effusion and right basilar atelectasis. Bibasilar bronchiectasis, mild nodule infiltrate of the right lung base, possible inflammatory nodule in the left lung base. Marked cardiomegaly, several enhancing liver lesions, massive ventral abdominal wall hernia containing multiple loops of bowel in small portion of the stomach, no evidence of bowel obstruction. Area of the liver showed enhancing mass to the left hepatic lobe measuring 5.2 x 3.6 cm, smaller enhancing nodules in the right hepatic lobe measuring 1.4 cm , possibility of focal nodular hyperplasia. ASSESSMENT AND PLAN: 1. Shortness of breath. 2. Respiratory failure. She is on O2 by mask. 3. Pneumonia. 4. Sepsis. 5. Ebstein anomaly with congestive heart failure. 6. Abnormal CT scan and questionable liver masses, possibly focal nodular hyperplasia. Awaiting AFP and other lab work. May need liver biopsy versus MRI. Further plans will be made as needed. I have discussed this case with Dr. Castillo who has seen the patient. Further plans will be made by him. Thank you for this consultation. Dictated by YARON Manzo for Anthony Castillo MD cc: YARON Remy MD [facility]
--- NOTE | 2016-11-28 20:50 | CONSULTATION ---
DATE OF CONSULTATION: 11/27/2016 SURGERY CONSULTATION: REASON FOR CONSULTATION: Buttock abscess. 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 In addition, she has complained of pain and swelling in her right buttock near the crease. This has been going on for several days. It is tender to touch, warm and red. She says she frequently gets infections. PAST MEDICAL HISTORY: Ebstein Anomaly. Massive ventral hernia. Diastolic congestive heart failure. Chronic respiratory failure, both hypoxic and hypercarbic. Depression. Hypertension. Hyperlipidemia. COPD. PAST SURGICAL HISTORY: Tubal ligation. Aneurysmal clipping. ALLERGIES: Cyclobenzaprine, Latuda, vancomycin. FAMILY HISTORY: Reviewed and noncontributory. SOCIAL HISTORY: She smokes a pack per day. Denies alcohol or illicit drug use. HOME MEDICATIONS: Potassium chloride. Paroxetine. Daliresp. Prinivil. Furosemide. Lamotrigine. Promethazine. Perphenazine. ProAir. Albuterol nebulizers. Spiriva. REVIEW OF SYSTEMS: Positive for vomiting and abdominal pain. Otherwise, 10 systems reviewed and negative except as noted above. PHYSICAL EXAMINATION: Vital Signs: Temperature 98 degrees, pulse 100, respirations 22, blood pressure 121/78, O2 saturation 93%. General: She is an ill-appearing female in no acute distress on supplemental oxygen with BiPAP. Cardiovascular: Regular rate and rhythm. Respiratory: Bilateral breath sounds. She does have some wheezing. GI: Soft, nontender. There is a very large hernia which is reducible. Skin: She has a fluctuant, tender, red abscess on the right buttock near the gluteal crease. IMAGING: A CT of abdomen and pelvis was performed which shows the gluteal abscess. There also is a massive ventral hernia with no signs of bowel obstruction. ASSESSMENT/PLAN: A 40-year-old female with a gluteal abscess. We will perform I D at the bedside tomorrow. I discussed the risks and benefits with her including bleeding, ongoing infection requiring further procedures. She understands and agrees to proceed. In regards to the hernia, she is a poor operative candidate, and I am not recommending any intervention at this time. cc: Yan Lewis MD
--- NOTE | 2016-11-28 20:52 | OPERATIVE NOTE ---
PROCEDURE DATE: 11/28/2016 PREOPERATIVE DIAGNOSIS: Gluteal abscess. POSTOPERATIVE DIAGNOSIS: Gluteal abscess. PROCEDURE: Incision and drainage of gluteal abscess. SURGEON: Yan Lewis MD. ESTIMATED BLOOD LOSS: 3 mL. COMPLICATIONS: None apparent. FINDINGS: Purulent fluid. SPECIMENS: Purulent fluid for culture and sensitivity. TECHNIQUE: She was placed on her left side. The skin was prepped with Betadine. A scalpel was used to make a stab incision over the fluctuant area. A large amount of pus was drained. A dry sterile dressing was placed over the wound. There were no apparent complications. A specimen was obtained for culture and sensitivity. cc: Yan Lewis MD
[2016-11-28] MEDS ORDERED: LAMICTAL PO SCH (21:00)
[2016-11-28] MEDS: PHENERGAN IV PRN (22:16)
[2016-11-29] MEDS: DUONEB (A & A) INH SCH ×6 (03:20→23:07)
[2016-11-29] MEDS: SOLU-MEDROL IV SCH ×3 (03:29→18:02)
[2016-11-29] MEDS: ZOSYN 3.375 GM/NS 3.375 GM/50 ML IVPB IV SCH ×3 (05:50→18:00)
[2016-11-29] MEDS: NEXIUM IV SCH ×2 (05:51→06:01)
[2016-11-29 06:53] LABS: ALLEN TEST YES; BE 4.7 mmoll (-3.0-3.0); BLOOD TYPE ARTERIAL; DRAW SITE R RADIAL; METHB 0.6 % (0.0-1.5); O2(CT) 18.4 mL/dL (15.0-23.0); PCO2(98.6) 48 mmHg (35-45); PO2(98.6) 69 mmHg (60-100); SAMPLE BLOOD; SAO2 95.3 % (95.0-100.0); THB 14.1 g/dL (11.5-17.4); pH(98.6) 7.41 (7.35-7.45)
[2016-11-29 06:54] LABS: MODALITY NRB
[2016-11-29 07:20] LABS: HEMATOCRIT 49.1 % (37.0-47.0); HEMOGLOBIN 13.9 g/dL (12.0-16.0); IMM GRAN# 0.02 X1000 (0.0-0.04); IMM GRAN% 0.1 % (0.0-0.5); LYMPH# 0.56 X1000 (1.2-3.4); LYMPH% 3.7 % (20.5-51.1); MANUAL DIFF NEEDED? YES; MCH 22.4 PG (27-31); MCHC 28.3 g/dL (33-37); MCV 79.2 FL (81-99); MONO# 0.33 X1000 (0.11-0.59); MONO% 2.2 % (1.7-9.3); MPV 9.9 FL (7.4-10.4); PLT 251 X1000 (130-400)
[2016-11-29 07:26] LABS: AGAP 11; BUN 14 mg/dL (8-22); CALCIUM 9.1 mg/dL (8.8-10.2); CHLORIDE 100 mmol/L (98-107); COSMO 282; MAGNESIUM 1.7 mg/dL (1.5-2.7); POTASSIUM 4.2 mmol/L (3.5-5.1); SODIUM 139 mmol/L (136-145); TCO2 28 mmol/L (25-35)
--- NOTE | 2016-11-29 07:26 | PROGRESS NOTE ---
DATE: 11/29/2016 PRESENT ILLNESS: The patient is being treated for a nodular pneumonia as seen on CT scan. She also has had incision and drainage of a right buttock abscess performed yesterday by Dr. Lewis. MEDICATIONS: The patient is receiving Zosyn as a single agent. PHYSICAL EXAMINATION: Vital Signs: Temperature is 98.1 degrees, pulse 94, respirations 20, blood pressure 114/69. General: This is a somewhat ill-appearing, middle-aged female. She is in no acute distress. Lungs: Clear to auscultation. Cardiovascular: Regular heart rate. Abdomen: The patient has a large abdominal hernia. Pelvic: The patient had incision and drainage of the abscess performed by Dr. Lewis. The operative site has a dressing on it. The dressing is intact. The buttock, where the abscess was drained, is indurated, but not fluctuant. IMAGING AND LABORATORY DATA: The patient's CBC shows a white count of 10,030, hemoglobin 13.7, and platelet count 221,000. The patient's blood gases show a pH of 7.37, a PO2 of 97, a pCO2 of 60. Creatinine 0.4. GFR is greater than 60. There is a chest x-ray that has been ordered today; the results are pending. ASSESSMENT AND PLAN: I plan to continue with the patient's antibiotic for her abscess and possible pneumonia as well. The patient's comorbidities are that she has congestive heart failure, also some element of chronic obstructive pulmonary disease. She also has a buttock abscess, which has been drained. Plan will be to continue with the current antibiotic pending culture results. The patient's comorbidities include Ebstein's anomaly of the heart, congestive heart failure, and chronic obstructive pulmonary disease. cc: Bry De Luna MD
--- NOTE | 2016-11-29 07:36 | Diag Imaging Result Doc PS360 ---
EXAM: CHEST-PORTABLE HISTORY: copd exacerbation TECHNIQUE: Portable COMPARISON: 11/28/2016 FINDINGS: The heart remains enlarged. The lungs are well expanded. The vessels are not distended. Interval decrease in the size of the tiny right pleural effusion. No consolidation. IMPRESSION: Interval decrease in the size of the tiny right pleural effusion, otherwise stable exam. Electronically signed by Marv Mcclure 11/29/2016 7:34 AM
[2016-11-29 07:44] LABS: LYMPHS 1 % (21-51); MONO 3 % (1-9)
[2016-11-29] MEDS: PAXIL PO SCH (08:10)
[2016-11-29] MEDS: LOVENOX SUBQ SCH (08:10)
[2016-11-29] MEDS: COLACE PO SCH (08:11)
--- NOTE | 2016-11-29 13:43 | PROGRESS NOTE ---
DATE: 11/29/2016 SUBJECTIVE: She feels better. She did have some drainage from her incision yesterday. OBJECTIVE: She is afebrile. Pulse is in the low 100s. O2 saturation 97%. Blood pressure 116/68.General: She is alert and oriented x4. No acute distress. Her skin wound was not examined today as she was dressed. LABORATORY: White blood cell count [id number]; the wound culture is pending. ASSESSMENT AND PLAN: A 41-year-old female with buttock abscess which was lanced yesterday. I think she can clean the area with hydrogen peroxide soap and water and cover with a gauze bandage and follow up with me as needed. cc: Yan Lewis MD
--- NOTE | 2016-11-29 17:23 | PROGRESS NOTE ---
DATE: 11/29/2016 SUBJECTIVE: Ms Collins is feeling better. She is asking about going home. She remains afebrile. Breathing is comfortable. OBJECTIVE: Vital signs: Temperature 98.3 degrees, pulse 105, respirations 20, blood pressure 126/73. HEENT: Pupils are equal, round, CVP less than 6 cm. Lungs: Clear in all lung valentino. Cardiovascular: Regular rhythm and rate without murmur or S3. Abdomen: Soft. Skin: Is warm and dry. Urine output 1600 mL. LAB: White count 15,070, hematocrit 49, platelet count was 251,000. Chemistry. Sodium 139, potassium 4.2, chloride 100, bicarb 28, BUN 14, creatinine 0.4, blood sugar 127, 163. ASSESSMENT AND PLAN: 1. A 41-year-old female with buttock abscess was lanced yesterday, cleaned with peroxide, continue gauze bandage as needed. 2. Patient treated for nodular pneumonia seen on CAT scan. She also had incision and drainage right buttock seems to be remained afebrile, receiving Zosyn as a single agent. Plan to continue antibiotic for abscess and possible pneumonia. Discussed with Dr. De Luna switching her p.o. antibiotics, maybe she can go home tomorrow. 3. Respiratory failure which is improved. 4. Chronic obstructive pulmonary disease, chronic respiratory failure she has had for years. Biventricular failure she has Ebstein anomaly. 5. Abdominal CAT scan showed possible neoplasm filling defect and this may need to be explored further. In regards to the hernia she is a poor operative candidate and no intervention at this time. She has a massive ventral hernia. cc: Kvng Leroy MD
[2016-11-29] MEDS: TYLENOL PO PRN (21:04)
[2016-11-29] MEDS: LAMICTAL PO SCH (21:04)
[2016-11-29] MEDS: BENADRYL PO PRN (21:04)
[2016-11-29] MEDS: PHENERGAN IV PRN (21:50)
[2016-11-30] MEDS: ZOSYN 3.375 GM/NS 3.375 GM/50 ML IVPB IV SCH ×3 (01:44→06:25)
[2016-11-30] MEDS: TYLENOL PO PRN (02:35)
[2016-11-30] MEDS: SOLU-MEDROL IV SCH (02:35)
[2016-11-30] MEDS: DUONEB (A & A) INH SCH ×2 (03:19→07:33)
[2016-11-30] MEDS: BENADRYL PO PRN (05:46)
[2016-11-30] MEDS: NEXIUM IV SCH ×2 (05:46→09:56)
[2016-11-30 06:59] LABS: AGAP 11; BUN 20 mg/dL (8-22); CALCIUM 8.7 mg/dL (8.8-10.2); CHLORIDE 99 mmol/L (98-107); COSMO 277; MAGNESIUM 1.7 mg/dL (1.5-2.7); POTASSIUM 4.5 mmol/L (3.5-5.1); SODIUM 135 mmol/L (136-145); TCO2 25 mmol/L (25-35)
[2016-11-30 08:07] VITALS: BP 134/79
[2016-11-30] MEDS ORDERED: LASIX PO SCH (09:00)
[2016-11-30] MEDS ORDERED: COZAAR PO SCH (09:00)
[2016-11-30] MEDS: COLACE PO SCH (09:56)
[2016-11-30] MEDS: LOVENOX SUBQ SCH (09:58)
[2016-11-30] MEDS: PAXIL PO SCH (09:58)
--- NOTE | 2016-11-30 10:05 | DISCHARGE SUMMARY ---
ADMISSION DATE: 11/27/2016 DISCHARGE DATE: 11/30/2016 HISTORY OF PRESENT ILLNESS: Ms. Collins is a 41-year-old female with a history of Lis anomaly, congestive heart failure, massive ventral abdominal hernia, chronic hypoxic respiratory failure. Presented to the emergency room with multiple week history of shortness of breath. She had been throwing up over the past week. Shortness of breath which has gotten progressively worse, worsening peripheral cyanosis and central cyanosis. At home, her O2 saturations ranged anywhere from 70-90 on 5 L of O2. She has had night sweats, fever, chills, shortness of breath, and was admitted for hypercapnic respiratory failure. PAST MEDICAL HISTORY: Includes: 1. Lis anomaly. 2. Massive ventral hernia. 3. Nicotine dependence. 4. Diastolic heart failure. 5. Chronic hypoxic respiratory failure. 6. Chronic hypercarbic respiratory failure. 7. Depression. 8. Hypertension. 9. Hyperlipidemia. 10. COPD. HOSPITAL COURSE: She was moved to the unit. I think we did not want to use the BiPAP but was able to improve her oxygen exchange, gas exchange. She got a dose of Lasix for biventricular decompensation. [place] she had community-acquired pneumonia. They treated her empirically with antibiotics and also felt she met minimal criteria for sepsis with leukocytosis and SIRS or systemic inflammatory response. She showed steady improvement. Moved her from the unit. Cardiology involved. She had some places on the liver seen on CAT scan and it felt like these may be some nodular cirrhosis. Dr. Castillo evaluated and may need a liver biopsy but at this point, to send off some studies, AFP, some other lab studies for questionable nodular cirrhosis. Dr. Lewis drained a skin abscess on the buttocks which appeared to be healing well. Dr. De Luna is involved per infectious disease. He felt they were treating her for possible nodular pneumonia. Clinically, she showed steady improvement and wanted to go home so it was felt she could go home on 11/30/2016. DISCHARGE MEDICATIONS: She will continue her DuoNebs at home, Colace 200 mg a day. We will give her Nexium 40 mg p.o. daily, Lasix 20 mg a day, Lamictal 100 mg at bedtime, Cozaar 50 mg a day. Give her a Medrol Dosepak, Paxil 30 mg a day. I will stop her Zosyn. DISCHARGE INSTRUCTIONS: She is to follow up. She is looking for a primary care. She is to follow up with primary care. Also follow up with Dr. Castillo in a couple weeks, want to follow up with the liver and the nodular density seen on the CAT scan. This was done on 11/27/2016, abdominal CAT scan. No evidence of pulmonary embolism, moderate right pleural effusion, bilateral bronchiectasis, suggestion of mild nodular infiltrate in the right lung base, what appears to be tiny inflammation in the left lung base, marked cardiomegaly, several liver enhancing lesions in the early arterial phase, massive ventricular abdominal hernia. cc: Kvng Leroy MD
--- NOTE | 2016-11-30 12:00 | Diag Imaging Result Doc PS360 ---
EXAM: ANGIOGRAM/PULMONARY ARTERIES HISTORY: Rule out PE TECHNIQUE: CT chest with intravenous contrast. MIP images obtained. COMPARISON: 11/27/2016 FINDINGS: There is normal opacification of the pulmonary arteries and their major branches. No filling defects have developed within the pulmonary arteries in the three days since the prior exam the heart remains markedly enlarged. Interval decrease in the size of the right pleural effusion. Only trace pleural fluid remains. No definite left effusion. A tiny patchy infiltrate has developed anteriorly in the left upper lobe since the prior study. No consolidation. There is bronchiectasis inferiorly with bronchial wall thickening similar to the prior study. No change in the liver lesions. IMPRESSION: 1.No pulmonary emboli 2.Interval decrease in the size of the right pleural effusion 3.Development of a tiny left upper lobe infiltrate 4.Persistent marked cardiomegaly Electronically signed by Marv Mcclure 11/30/2016 11:58 AM
== END 2016-11-30 12:33 | disposition home or self-care (01) ==
LOC: ED 10:41 → ICU 13:46 → SUATTDRO 13:46 → 3N 11-28 13:13
PROVIDERS: ATTEND Emergency Medicine

== ENCOUNTER 2016-12-20 08:14 | Inpatient (IN) ==
[2016-12-20] MEDS ORDERED: DOPAMINE 400 MG/D5W 400 MG/500 ML IV.SOLN IV SCH (08:24)
[2016-12-20] MEDS ORDERED: NS 1,000 ML IV ONE (08:28)
[2016-12-20 08:43] LABS: ALLEN TEST NO; BE -2.9 mmoll (-3.0-3.0); BLOOD TYPE ARTERIAL; DRAW SITE R BRACHIAL; METHB 0.5 % (0.0-1.5); O2(CT) 18.1 mL/dL (15.0-23.0); PO2(98.6) 117 mmHg (60-100); SAMPLE BLOOD; SAO2 99.4 % (95.0-100.0); THB 13.7 g/dL (11.5-17.4)
[2016-12-20 08:44] LABS: pH(98.6) 7.14 (7.35-7.45)
[2016-12-20 08:45] LABS: MODALITY AMBU BAG; PCO2(98.6) 83 mmHg (35-45)
[2016-12-20] MEDS ORDERED: NARCAN ONE (09:00)
[2016-12-20] MEDS ORDERED: SODIUM BICARBONATE 8.4% ONE (09:00)
[2016-12-20] MEDS ORDERED: LEVOPHED 8 MG in D5 1/2 NS 250 ML IV SCH (09:00)
[2016-12-20] MEDS ORDERED: EPINEPHRINE SYRINGE ONE (09:00)
--- NOTE | 2016-12-20 09:05 | Diag Imaging Result Doc PS360 ---
EXAM: CHEST-PORTABLE HISTORY: psot cardiac arrest TECHNIQUE: Portable supine AP COMPARISON: 11/29/2016 FINDINGS: A nasogastric tube overlies the esophagus and exit the film. There is an endotracheal tube with its tip located 2 to 3 cm above the octavio. Heart is mildly prominent. There is a small right-sided pleural effusion. Mild vascular distention. No pneumothorax identified. IMPRESSION: Endotracheal tube in good position and the nasogastric tube likely enters the stomach as well. Electronically signed by Marv Mcclure 12/20/2016 9:03 AM
[2016-12-20 09:08] LABS: URINE MICRO REVIEW NEEDED? NO; URINE SOURCE CATH
[2016-12-20 09:17] LABS: BILIRUBIN URINE NEGATIVE (NEGATIVE); BLOOD URINE MODERATE (NEGATIVE); COLOR YELLOW; GLUCOSE URINE TRACE mg/dL (NEGATIVE); LEUKOCYTES URINE NEGATIVE (NEGATIVE); NITRITE URINE NEGATIVE (NEGATIVE); PH URINE 7.5; PROTEIN URINE >600 mg/dL (NEGATIVE); SP GRAVITY URINE 1.015; TURBIDITY URINE HAZY (CLEAR); UROBILINOGEN URINE NORMAL (NORMAL)
[2016-12-20 09:18] LABS: UR EPITHELIAL CELLS <10 /HPF (<10); URINE BACTERIA 3+ /HPF; URINE CULTURE NEEDED? YES; URINE WBC TNTC /HPF (<10)
--- NOTE | 2016-12-20 09:26 | Diag Imaging Result Doc PS360 ---
CT HEAD W/O CONTRAST - 12/20/2016 INDICATION: post cardiac TECHNIQUE: A CT dose reduction protocol was used. COMPARISON: 01/28/2014 FINDINGS: Stable right posterior fossa craniotomy changes. Stable encephalomalacia of the right cerebellar hemisphere indicating prior resection. No intracranial mass or hemorrhage. There is suggestion of diffuse effacement of the sulci throughout the cerebral hemispheres. This is concerning for early cerebral edema. The ambient cistern is also somewhat effaced. No skull fractures. The sinuses are clear. IMPRESSION: Suggestion of early cerebral edema. Effacement of the CSF spaces and basilar cisterns. No obvious herniation at this time however. The report was immediately called to the emergency room. Electronically signed by Sandoval Argueta 12/20/2016 9:24 AM
[2016-12-20 09:34] LABS: AGAP 32; ALBUMIN 2.5 g/dL (3.5-5.0); ALKALINE PHOSPHATASE 175 U/L (32-104); BUN 16 mg/dL (8-22); CALCIUM 8.4 mg/dL (8.8-10.2); CHLORIDE 90 mmol/L (98-107); CK PROFILE 56 U/L (24-173); COSMO 299; GOT 101 U/L (10-30); GPT 43 U/L (10-36); POTASSIUM 4.3 mmol/L (3.5-5.1); SODIUM 147 mmol/L (136-145); TCO2 25 mmol/L (25-35); TOTAL PROTEIN 5.3 g/dL (6.3-8.3)
[2016-12-20 09:45] LABS: BASO% 0.5 % (0.0-0.8); EOS# 0.39 X1000 (0.0-0.7); EOS% 2.3 % (0.0-10.0); HEMATOCRIT 49.3 % (37.0-47.0); IMM GRAN# 0.32 X1000 (0.0-0.04); IMM GRAN% 1.9 % (0.0-0.5); LYMPH# 6.08 X1000 (1.2-3.4); LYMPH% 35.9 % (20.5-51.1); MANUAL DIFF NEEDED? NO; MCH 23.3 PG (27-31); MCHC 26.4 g/dL (33-37); MCV 88.5 FL (81-99); MONO# 0.92 X1000 (0.11-0.59); MONO% 5.4 % (1.7-9.3); MPV 9.8 FL (7.4-10.4); PLT 259 X1000 (130-400); RBC 5.57 XMIL (4.2-5.4)
--- NOTE | 2016-12-20 10:19 | EKG Report ---
Test Performed on : 12/20/2016 08:25:49 AM Test Reason : FULLARREST Blood Pressure : / mmHG Vent. Rate : 123 BPM Atrial Rate : 127 BPM P-R Int : 000 ms QRS Dur : 120 ms QT Int : 446 ms P-R-T Axes : 000 -74 082 degrees QTc Int : 638 ms Wide QRS tachycardia. Left axis deviation Inferior infarct , age undetermined Possible Anterior infarct , age undetermined Abnormal ECG When compared with ECG of 27-NOV-2016 16:30, Wide QRS tachycardia. has replaced Sinus rhythm. Unconfirmed Result
[2016-12-20 10:25] LABS: UR AMPHETAMINES QUAL NONE DETECTED (NONE DETECT); UR BARBITUATES QUAL NONE DETECTED (NONE DETECT); UR BENZODIAZEPIN QUAL NONE DETECTED (NONE DETECT)
[2016-12-20 10:34] LABS: UR CANNABINOIDS QUAL PRESUMPTIVE POSITIVE (NONE DETECT); UR COCAINE QUAL NONE DETECTED (NONE DETECT); UR METHADONE QUAL NONE DETECTED (NONE DETECT); UR OPIATES QUAL NONE DETECTED (NONE DETECT); UR OXYCODONE QUAL NONE DETECTED (NONE DETECT); UR PCP QUAL NONE DETECTED (NONE DETECT)
--- NOTE | 2016-12-20 11:41 | Diag Imaging Result Doc PS360 ---
CT ANGIOGRAM/HEAD AND NECK - 12/20/2016 INDICATION: stroke eval, cerebral edema TECHNIQUE: Axial CT images were obtained after administering intravenous contrast. Three-dimensional angiographic images were generated. A CT dose reduction protocol was used. COMPARISON: Head CT from earlier FINDINGS: There is an endotracheal tube and nasogastric tube in good position. The vessels of the head and neck are normal. There is possibly some cerebral edema with effacement of the CSF spaces. No ventriculomegaly or herniation. There is a small right pleural effusion. There is some multifocal nodular infiltrates in the upper lobes of the lungs. Airways are grossly patent. Bony structures are intact. IMPRESSION: 1. Normal angiogram. 2. Possible cerebral edema stable from prior. No ventriculomegaly or herniation. 3. Right pleural effusion. Nodular infiltrates in the lung apices. Electronically signed by Sandoval Argueta 12/20/2016 11:38 AM
[2016-12-20] MEDS ORDERED: VANCOMYCIN IV PER PHARMACY MISC SCH (12:15)
--- NOTE | 2016-12-20 12:27 | HISTORY AND PHYSICAL ---
DIRECTOR OF QUALITY CONTROL: Dr. Fischer. SUBSTATION MECHANIC: Dr. Levine. CHIEF COMPLAINT: Cardiopulmonary arrest. HISTORY OF PRESENT ILLNESS: Mrs. Collins is an unfortunate 41-year-old female well known to our service, she has a history of Lis's anomaly with profound congestive heart failure with a known EF of 40%. She was in her normal state of health even up to around 4: 30 this morning. Her reports that she woke up and gave him a hug on his way out to work and then went back to bed. An hour to an hour and a half later her son found her in bed minimally responsive and called 911. EMS reports that they arrived on scene and found the patient unresponsive, in asystole. She was intubated en route to the hospital and ACLS protocols were initiated. She received multiple rounds of epinephrine and in the ER return of spontaneous circulation was achieved with antiarrhythmic drugs. A head CT was done which shows suggestion of early cerebral edema, effacement of the CSF bases and basilar cisterns. An ABG was also done and she was noted to be in profound respiratory acidosis and initial lactic acid was 16.10. Unfortunately at this time the patient's prognosis is extremely poor and the family has been made aware and they are currently making decision as far as her resuscitation status and possibly withdrawing care. She will be going to the ICU for further treatment and evaluation. PAST MEDICAL HISTORY: 1. Lis's anomaly. 2. Congestive heart failure. 3. Massive ventral hernia. 4. Chronic hypoxic respiratory failure. 5. Depression. 6. Hypertension. 7. Hyperlipidemia. 8. COPD. 9. Continued nicotine dependence. 10. History of brain aneurysm status post clipping. PAST SURGICAL HISTORY: Tubal ligation, aneurysmal clipping of the brain, and recent I D of gluteal abscess. SOCIAL HISTORY: Patient smokes. There is no history of alcohol use but apparently she does smoke marijuana. REVIEW OF SYSTEMS: Unable to obtain. FAMILY HISTORY: Noncontributory. MEDICATIONS: Are currently being compiled at this time. ALLERGIES: Cyclobenzaprine, lurasidone, and vancomycin. PHYSICAL EXAMINATION: VITAL SIGNS: Blood pressure is 99/74, heart rate 118, respiratory rate is 22, O2 saturation is 90% on mechanical ventilation 100%, temperature is 97.3 degrees. GENERAL: This is a chronically ill, 41-year-old female, lying in hospital bed, intubated and unresponsive. NEUROLOGIC: The patient is intubated. She is not on any sedation. She does have occasional myoclonic jerking. HEENT: Head is atraumatic, normocephalic. Her pupils are pinpoint bilaterally but equal. ET tube and NG tube are noted. Oral mucosa is moist. Trachea is midline. CHEST: Diminished at the bases but clear to auscultation bilaterally. CV: Tachycardic rate but regular. S1, S2 is noted. GI: Massive ventral hernia noted. Belly is overall soft and nondistended. EXTREMITIES: No edema, clubbing, or cyanosis. Extremities are cool to touch. Pulses are diminished but palpable. DIAGNOSTIC DATA: Head CT, please see HPI. Chest x-ray shows good placement of ET tube and NG tube. EKG, sinus tach. WBC 16.95, hemoglobin 13, hematocrit 49.3, platelet count to 259,000. ABG on 100% mechanical ventilation, pH 7.14, CO2 83, O2 117, carboxyhemoglobin 5.9, lactic acid 16.10. Sodium 147, potassium 4.3, chloride 90, CO2 25, anion gap 32, BUN 16, creatinine 0.8, glucose 201, calcium 8.4, AST 101, ALT 43, alkaline phosphatase 175. Troponin negative. Albumin 2.5. Urinalysis shows possible UTI. Toxicology positive for marijuana. ASSESSMENT AND PLAN: 1. Cardiopulmonary arrest: At this time etiology is unclear. She does have cerebral edema but this could be secondary to anoxic brain injury. Also possibly a stroke. We are currently maintaining her on the ventilator, although her O2 saturation was marginal. The myoclonic jerking would be suggestive of anoxic brain injury. Pt's outcome is grave and her chances of mortality are extremely high. We will continue all measures until the family has told us to do otherwise. 2. Cerebral edema: Cerebrovascular accident versus prolonged anoxic brain injury. We will repeat head CT with contrast and consult neurology, monitor neuro status closely. We may need to add osmotic diuresis or alter vent settings in order to decrease ICP, we will discuss with neurologist. 3. Respiratory failure: Continue ventilation management. Pulmonary has been consulted. We will continue oxygen, nebulizers and aggressive pulmonary toilet. Check daily abg and cxr. 4. Profound lactic acidosis: This is certainly secondary to her prolonged asystole and resuscitative efforts. We are checking another ABG with lactic acid now. We will continue to trend her lactate until clear. 5. The patient has a very poor prognosis. Family has been updated. DNR status to be updated soon. CRITICAL CARE TIME: Greater than 45 minutes. Dictated by YARON Khan for eRnan Hamlin MD cc: YARON Khan MD I have seen and examined the patient and I agree with the above evaluation and plan s/p cardiac arrest Patient remains unresponsive with some myoclonic jerks Spoke with family extensively Patient has Poor prognosis. we discussed code status. For now patient will be DNR level 2. MTDD
[2016-12-20 12:28] LABS: ALLEN TEST YES; BE 15.6 mmoll (-3.0-3.0); BLOOD TYPE ARTERIAL; DRAW SITE L RADIAL; METHB 0.8 % (0.0-1.5); O2(CT) 18.6 mL/dL (15.0-23.0); PO2(98.6) 66 mmHg (60-100); SAMPLE BLOOD; SAO2 93.6 % (95.0-100.0); SRATE 16 BPM; THB 14.7 g/dL (11.5-17.4); TVOL 450 mL; pH(98.6) 7.29 (7.35-7.45)
[2016-12-20 12:29] LABS: MODALITY VENTILATOR; PCO2(98.6) 99 mmHg (35-45)
[2016-12-20 12:50] LABS: INR 1.08; PROTIME 11.4 Seconds (9.2-11.7); PTT 25.4 Seconds (22.0-36.0)
[2016-12-20] MEDS ORDERED: KEPPRA 1,000 MG in NS 100 ML IV SCH (13:00)
[2016-12-20] MEDS: MERREM 1 GM in NS 50 ML IV SCH ×2 (13:01→21:04)
[2016-12-20] MEDS ORDERED: KEPPRA 1,000 MG in NS 100 ML IV ONE ×2 (14:30→15:00)
[2016-12-20] MEDS ORDERED: NS 250 ML ONE (15:05)
--- NOTE | 2016-12-20 15:18 | CONSULTATION ---
DATE OF CONSULTATION: 12/20/2016 SUBJECTIVE: Ms. Collins is 41 years old, and she was found poorly responsive, or unresponsive, and reported to be pulseless at home. She was resuscitated, admitted to ICU, continued unresponsive. She has had some twitching and jerking movement in the limbs and around the face. The history available to me is that she has Lis syndrome, with chronic heart failure and low ejection fraction. She was reported normal at 4:30 this morning when left for work. There is not a report of previous stroke or other neurologic event. Past history is remarkable for Lis anomaly, as above, heart failure, chronic hypoxic respiratory failure, depression, hypertension, hyperlipidemia, COPD, continued cigarette smoking. There is reported to be history of brain aneurysm and clipping. I do not have details of that incident. DIAGNOSTICS: Lab work showed WBC 17,000, elevated liver enzymes, sodium 147, glucose 201. Drug screen was positive for cannabis. Home medicines include p.r.n. lorazepam, and urine drug screen was negative for benzodiazepine. Noncontrast CT of the head is reported to show features consistent with early diffuse cerebral edema. PHYSICAL EXAMINATION: General: On exam, Ms. Collins is supine, intubated, unresponsive to loud name calling. Neurologic: I did not see any definite response to nail-bed pressure in each limb. Stroking the sole of the foot produced no response. Limb tone is symmetric, and appears diminished throughout. She has full lateral eye movement with passive head turning. Corneal reflex is diminished, but present bilaterally, maybe a little bit more brisk on the left than the right. Both pupils are pinpoint with uncertain reactivity to bright light. I did not see her trigger a breath from the ventilator. There is intermittent rapid muscle twitch involving any or all limbs and associated facial grimace, but not with consistently lateralizing or focal feature and not repetitive. ELECTROENCEPHALOGRAM: Shows prominent, 5-10 second, periodic bursts of high- amplitude slowing with associated sharp wave and multiple sharp wave discharges. These bursts are by periods of relative voltage suppression, with generalized slowing and no posterior rhythm identified. There is mostly 8-10 Hz rhythmic activity across the hemispheres diffusely with uncertain reactivity. 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 Electroencephalogram is consistent with rhythmic coma, and shows significant tendency towards seizure. I think it would be prudent to continue levetiracetam and empirically increase the dose to 2000 mg every 12 hours, short term. Depending on her clinical course, we might consider repeat electroencephalogram later, and we might consider adding a second medicine for seizure control. Prognosis appears very poor, but will be more clear after the possibility of seizure is addressed. I don't have history of previous seizure, but the reported prior brain event (aneurysm and management) might predispose her to seizure. Thanks for asking me to see Ms. Collins. cc: MD BEE Aguilar III
[2016-12-20 17:35] LABS: ALLEN TEST YES; BLOOD TYPE ARTERIAL; DRAW SITE R RADIAL; METHB 1.2 % (0.0-1.5); O2(CT) 18.4 mL/dL (15.0-23.0); PO2(98.6) 65 mmHg (60-100); SAMPLE BLOOD; SAO2 94.2 % (95.0-100.0); THB 14.4 g/dL (11.5-17.4); pH(98.6) 7.36 (7.35-7.45)
[2016-12-20] MEDS: NS 1,000 ML IV SCH (17:35)
[2016-12-20 17:39] LABS: MODALITY VENTILATOR; PCO2(98.6) 88 mmHg (35-45)
[2016-12-20 17:41] LABS: SRATE 20 BPM; TVOL 450 mL
[2016-12-20] MEDS: MORPHINE IV PRN (21:25)
[2016-12-20] MEDS ORDERED: TORADOL IV ONE (22:27)
[2016-12-21] MEDS: MORPHINE IV PRN ×8 (00:05→23:27)
[2016-12-21] MEDS: KEPPRA 2,000 MG in NS 100 ML IV SCH ×2 (02:03→15:33)
[2016-12-21] MEDS ORDERED: KEPPRA 2,000 MG in NS 100 ML IV SCH (03:00)
[2016-12-21 04:24] LABS: ALLEN TEST YES; BE 12.8 mmoll (-3.0-3.0); BLOOD TYPE ARTERIAL; DRAW SITE R RADIAL; METHB 0.8 % (0.0-1.5); O2(CT) 18.8 mL/dL (15.0-23.0); PO2(98.6) 68 mmHg (60-100); SAMPLE BLOOD; SAO2 94.8 % (95.0-100.0); SRATE 20 BPM; THB 14.5 g/dL (11.5-17.4); TVOL 450 mL; pH(98.6) 7.38 (7.35-7.45)
[2016-12-21 04:26] LABS: MODALITY VENTILATOR; PCO2(98.6) 70 mmHg (35-45)
[2016-12-21] MEDS: NS 1,000 ML IV SCH ×2 (05:08→19:22)
[2016-12-21] MEDS: MERREM 1 GM in NS 50 ML IV SCH ×3 (05:08→21:50)
[2016-12-21] MEDS: LOVENOX SUBQ SCH (05:08)
[2016-12-21 05:47] LABS: BASO% 0.1 % (0.0-0.8); HEMATOCRIT 49.1 % (37.0-47.0); HEMOGLOBIN 13.8 g/dL (12.0-16.0); IMM GRAN# 0.07 X1000 (0.0-0.04); IMM GRAN% 0.3 % (0.0-0.5); LYMPH# 1.35 X1000 (1.2-3.4); LYMPH% 5.1 % (20.5-51.1); MANUAL DIFF NEEDED? YES; MCHC 28.1 g/dL (33-37); MCV 81.8 FL (81-99); MONO# 1.63 X1000 (0.11-0.59); MONO% 6.1 % (1.7-9.3); MPV 10.3 FL (7.4-10.4); NEUT% 88.4 % (42.2-75.2); PLT 233 X1000 (130-400)
[2016-12-21 06:28] LABS: AGAP 13; BUN 37 mg/dL (8-22); CALCIUM 8.3 mg/dL (8.8-10.2); CHLORIDE 97 mmol/L (98-107); COSMO 302; POTASSIUM 3.9 mmol/L (3.5-5.1); SODIUM 147 mmol/L (136-145); TCO2 37 mmol/L (25-35)
--- NOTE | 2016-12-21 06:30 | Diag Imaging Result Doc PS360 ---
EXAM: CHEST-1 VIEW HISTORY: SOB TECHNIQUE: Portable AP COMPARISON: 12/20/2016 FINDINGS: No change in the endotracheal tube or nasogastric tube. Interval placement of a right-sided PICC line. Tip overlies the distal superior vena cava. The heart remains enlarged. There is a small right-sided pleural effusion with atelectasis or infiltrates in the right base. IMPRESSION: No interval improvement.. Electronically signed by Marv Mcclure 12/21/2016 6:27 AM
[2016-12-21 06:50] LABS: BANDS 6 % (0-1); HYPOCHROM 1+; LYMPHS 6 % (21-51); MONO 8 % (1-9); NRBC 1 % (0-0)
[2016-12-21] MEDS: LEVAQUIN 500 MG/D5W 500 MG/100 ML IVPB IV SCH (08:46)
--- NOTE | 2016-12-21 09:03 | ED EKG INTERP ---
This chart was entered by Rosa Orellana Scribe, acting as scribe for Jony Neal MD. EKG Interpretation - EKG Time of EKG reading by physician:: 08:25 EKG Read and Signed by:: Jony Neal EKG Interpretation (*Must complete 3 of following elements*): Abnormal ( inferior infarct, age undetermined; possible anterior infarct, age undetermined) Rate: 123 Rhythm: Wide QRS tachycardia [place]: left Attestation - Physician/ LARISA Attestation Patient care was provided by Advanced Practice Provider:: No The physician spent face to face time with patient:: Yes Advanced Practice Provider documentation review:: Supervising physician onsite and consulted in the evaluation and care of this patient. The physician did have a face to face encounter with the patient. This chart was documented by the indicated scribe, (Rosa Orellana Scribe) and accurately reflects the services I performed and decisions made by me, Jony Neal MD, as attested by the provider's signature.
--- NOTE | 2016-12-21 09:04 | PROVIDER DOCUMENTATION ---
This chart was entered by Rosa Orellana Scribe, acting as scribe for Jony Neal MD. HPI-Cardiopulmonary Arrest - General Chief Complaint: Full Arrest Stated Complaint: FULL ARREST Time Seen by Provider: 12/20/16 08:27 Source: family Unable to obtain history due to:: urgency Allergies/Adverse Reactions: Allergies Allergy/AdvReac Type Severity Reaction Status Date / Time cyclobenzaprine HCl * Allergy HIVES Verified 06/07/16 21:33 [From Flexeril] lurasidone HCl * Allergy ANAPHYLAXIS Verified 06/07/16 21:33 [From Latuda] vancomycin Allergy HIVES Verified 06/08/16 02:28 Home Medications: Home Medication List Medication Instructions Recorded Confirmed Last Taken Type Furosemide 40 mg PO DAILY 03/11/16 11/27/16 03/11/16 History LISINOpril [Prinivil] 5 mg PO DAILY 03/11/16 11/27/16 03/11/16 History Paroxetine HCl 30 mg PO DAILY 03/11/16 11/27/16 03/11/16 History Potassium Chloride 10 meq PO DAILY 03/11/16 11/27/16 03/11/16 History Roflumilast [Daliresp] 500 mcg PO DAILY 03/11/16 11/27/16 03/11/16 History Lamotrigine 25 mg PO HS 06/07/16 11/27/16 Unknown History Albuterol Sulfate [Proair Hfa] 2 inh INH Q4H PRN 11/27/16 11/27/16 Unknown History Albuterol [Albuterol Neb] 1 vial INH Q4H PRN 11/27/16 11/27/16 Unknown History Lamotrigine 100 mg PO HS 11/27/16 11/27/16 Unknown History Perphenazine 1 tab PO HS 11/27/16 11/27/16 Unknown History Promethazine HCl 1 tab PO TID PRN 11/27/16 11/27/16 Unknown History Tiotropium [place] Inhaler 1 cap INH DAILY 11/27/16 11/27/16 Unknown History [Spiriva] Docusate Sodium [Colace] 200 mg PO DAILY #60 capsule 11/30/16 Unknown Rx Esomeprazole Magnesium [Nexium] 40 mg PO DAILY #30 capsule. 11/30/16 Unknown Rx Lorazepam [Ativan] 1 mg PO Q12H PRN PRN #60 tablet 11/30/16 Unknown Rx Losartan [Cozaar] 50 mg PO DAILY #30 tablet 11/30/16 Unknown Rx Methocarbamol [Robaxin-750] 750 mg PO Q8H PRN PRN #90 tablet 11/30/16 Unknown Rx Methylprednisolone [Medrol Dosepak] 4 mg PO DIRECTED #1 package 11/30/16 Unknown Rx - History of Present Illness-C/P Arrest Initial Comments: 41 yo F was found unresponsive by family this morning. Upon EMS arrival, pt was asystole. Pt was intubed, I/O placed, and given epi before arrival to ED. In ED , pt was asystole, given epi, and pulse returned for 1 minute. Pt returned to PEA, more epi, bicarb, and narcan were given, and pulse returned again. After this round, pulse remained, and viable cardiac activity was noted. Pt was then placed on dopamine drip. Reason for Code Blue?: full arrest Witnessed arrest?: No Bystander CPR?: No CPR initiated before doctor arrival?: Yes Down-time before ACLS?: unknown Initial Findings: unresponsive, asystole Treatment initiated prior to doctor arrival?: Initiated intubated, Initiated CPR /thumper, Initiated epinephrine #mg Similar Symptoms Previously?: No Recently seen or treated by another doctor?: No - Pre-hospital Treatment EMS Initial Findings:: unresponsive Pre-hospital Treatment: Initiated intubated, Initiated epinephrine Review of Systems - Adult - REVIEW OF SYSTEMS - ADULT ROS:: limited per condition Constitutional: reports: see HPI Past History - Adult - PAST MEDICAL HISTORY-ADULT Review of Records: reports: Old Records Reviewed, Nursing Assessment Review, Medications Reviewed Major Childhood Illnesses: reports: denies history Cardiovascular: reports: cardiac disease, HTN, other (heart failure ) Respiratory: reports: asthma, COPD Gastrointestinal: reports: denies history Obstetrical/Gynecological: reports: denies history Genitourinary: reports: denies history Musculoskeletal: reports: chronic pain (back pain ) Neurological: reports: CVA, other (brain aneurysm ) Psychiatric: reports: depression Endocrine/Immune: reports: denies history Other Conditions: reports: denies history - PRIOR SURGERIES/PROCEDURES Surgical/Procedure History: reports: BTL - PRIOR HOSPITALIZATIONS Prior Hospitalizations: reports: for other non-related - IMMUNIZATION STATUS Childhood Immunizations: See Nurse Assessment Flu Vaccine: See Nurse Assessment - FAMILY HISTORY Family History: reviewed, not pertinent Physical Exam-General - PHYSICAL EXAM-ADULT Exam Limited by: pt unresponsive; cardiac arrest unwitnessed Initial Vital Signs Reviewed: Yes - CONSTITUTIONAL General Appearance: obtunded, other (no signs of trauma) - EYES Eyes: other (pupils fixed and dialated) - RESPIRATORY Respiratory: other (equal breath sounds w/tube) - CARDIOVASCULAR Cardiovascular: normal peripheral pulses (after return of pulse), regular rate, rhythm (after return of pulse) - GASTROINTESTINAL (ABDOMEN) Abdominal Exam: soft, hernia Progress - PLAN OF CARE/RESULTS Progress/Plan/Lab Results: Laboratory Results - last 24 hr 12/20/16 12/20/16 12/20/16 08:37 08:37 08:37 WBC 16.95 H RBC 5.57 H Hgb 13.0 Hct 49.3 H MCV 88.5 MCH 23.3 L MCHC 26.4 L RDW Std Deviation 25.3 H Plt Count 259 MPV 9.8 Immature Gran % (Auto) 1.9 H Neut % (Auto) 54.0 Lymph % (Auto) 35.9 [place] % (Auto) 5.4 Eos % (Auto) 2.3 Baso % (Auto) 0.5 Immature Gran # (Auto) 0.32 H Neut # (Auto) 9.16 H Lymph # (Auto) 6.08 H [place] # (Auto) 0.92 H Eos # (Auto) 0.39 Baso # (Auto) 0.08 Sodium 147 H Potassium 4.3 Chloride 90 L Carbon Dioxide 25 Anion Gap 32 BUN 16 Creatinine 0.8 Estimated GFR/1.73 m2 > 60 BUN/Creatinine Ratio 20 Glucose 201 H Calculated Osmolality 299 Calcium 8.4 L Total Bilirubin 0.30 AST 101 H ALT 43 H Alkaline Phosphatase 175 H Creatine Kinase 56 Troponin T < 0.010 Aul-K-Raqplnpndyc Pept Total Protein 5.3 L Albumin 2.5 L Globulin 2.8 Albumin/Globulin Ratio 0.9 Urine Source Urine Color Urine Turbidity Urine pH Ur Specific Likely Urine Protein Ur Glucose (Stick) Ur Ketones (Stick) Urine Blood Urine Nitrite Urine Bilirubin Urobilinogen Dipstick Urine Leukocytes Urine WBC (Auto) Urine RBC (Auto) U Epithel Cells (Auto) Urine Bacteria (Auto) Urine Opiates Screen Ur Oxycodone Screen Ur Methadone, Qual Ur Barbiturates Screen Ur Phencyclidine Scrn Ur Amphetamines Screen U Benzodiazepines Scrn Urine Cocaine Screen U Cannabinoids Screen 12/20/16 12/20/16 12/20/16 08:37 08:57 08:57 WBC RBC Hgb Hct MCV MCH MCHC RDW Std Deviation Plt Count MPV Immature Gran % (Auto) Neut % (Auto) Lymph % (Auto) [place] % (Auto) Eos % (Auto) Baso % (Auto) Immature Gran # (Auto) Neut # (Auto) Lymph # (Auto) [place] # (Auto) Eos # (Auto) Baso # (Auto) Sodium Potassium Chloride Carbon Dioxide Anion Gap BUN Creatinine Estimated GFR/1.73 m2 BUN/Creatinine Ratio Glucose Calculated Osmolality Calcium Total Bilirubin AST ALT Alkaline Phosphatase Creatine Kinase Troponin T Glm-H-Kfubhksdtif Pept 398 H Total Protein Albumin Globulin Albumin/Globulin Ratio Urine Source CATH Urine Color YELLOW Urine Turbidity HAZY Urine pH 7.5 Ur Specific Likely 1.015 Urine Protein >600 A Ur Glucose (Stick) TRACE Ur Ketones (Stick) TRACE A Urine Blood MODERATE A Urine Nitrite NEGATIVE Urine Bilirubin NEGATIVE Urobilinogen Dipstick NORMAL Urine Leukocytes NEGATIVE Urine WBC (Auto) TNTC A Urine RBC (Auto) 10-20 A U Epithel Cells (Auto) <10 Urine Bacteria (Auto) 3+ Urine Opiates Screen NONE DETECTED Ur Oxycodone Screen NONE DETECTED Ur Methadone, Qual NONE DETECTED Ur Barbiturates Screen NONE DETECTED Ur Phencyclidine Scrn NONE DETECTED Ur Amphetamines Screen NONE DETECTED U Benzodiazepines Scrn NONE DETECTED Urine Cocaine Screen NONE DETECTED U Cannabinoids Screen PRESUMPTIVE POSITIVE A Orders Category Date Time Status Admit - [facility] Routine AdmDCTranf 12/20/16 10:53 Ordered Activity - Up with Assistance ORDERED Care 12/20/16 10:53 Completed [place] Cath Insertion ORDERED Care 12/20/16 08:30 Active IV Insertion ORDERED Care 12/20/16 08:28 Completed Intake and Output-Strict ORDERED Care 12/20/16 10:53 Active NG/OG/Feeding Tube Insertion ORDERED Care 12/20/16 08:30 Active Nursing- MD Consult Request ROUTINE Care 12/20/16 10:53 Completed Vital Signs Order ROUTINE Care 12/20/16 10:53 Completed Z-Document. for Tele Applied ORDERED Care 12/20/16 10:53 Active Physician/Provider Consults Routine Cons 12/20/16 10:53 Ordered NPO Diet 12/20/16 09:45 Active CHEST-PORTABLE [RAD] Stat Exams 12/20/16 08:[address] HEAD W/O CONTRAST [CT] Stat Exams 12/20/16 08:28 Completed CTA [CT ANGIOGRAM/HEAD AND NECK] [CT] Routine Exams 12/20/16 09:42 Completed ABG [RESP] Routine Lab 12/20/16 08:35 Completed CBC WITH DIFF [HEME] Stat Lab 12/20/16 08:37 Completed CK PROFILE [SP CHEM] Stat Lab 12/20/16 08:37 Completed COMPREHENSIVE METABOLIC PANEL [CHEM] Stat Lab 12/20/16 08:37 Completed TROPONIN T Stat Lab 12/20/16 08:37 Completed URINALYSIS W/POSS RFLX CULT-1 [URINALYSIS] Stat Lab 12/20/16 08:57 Completed URINE CULTURE [RM] Routine Lab 12/20/16 09:27 Results URINE DRUG SCREEN Stat Lab 12/20/16 08:57 Completed 0.9% Sodium Chloride Inj [Ns] 1,000 ml Med 12/20/16 08:28 Discontinued IV 999 mls/hr Dextrose 5%-0.45% NaCl Inj [D5 1/2 Ns] 250 ml Med 12/20/16 09:00 Active Norepinephrine [Levophed] 8 mg IV As Directed Dopamine 400 mg/D5w Med 12/20/16 08:24 Discontinued 400 mg in 500 ml IV Per Protocol Epinephrine Syringe Med 12/20/16 09:00 Discontinued 2 mg .ROUTE .STK-MED ONE Naloxone [Narcan] Med 12/20/16 09:00 Discontinued 2 mg .ROUTE .STK-MED ONE Sodium Bicarbonate 8.4% Med 12/20/16 09:00 Discontinued 50 meq .ROUTE .STK-MED ONE Telemetry [OM.EQ] Routine Oth 12/20/16 10:53 Active EKG [EKG] Stat Ther 12/20/16 08:23 Draft Transfer/Admit Order [TRANSFER] Routine Transfer 12/20/16 09:44 Completed Result Diagrams: 12/21/16 04:10 12/21/16 04:10 - XRAY 1 XRAY Study: Chest Impression: Abnormal XRAY Interpretation: tube placement appropriate - CT/MRI 1 CT Study: Head Impression: Abnormal (Stable right posterior fossa craniotomy changes. Stable encephalomalacia of the right cerebellar hemisphere indicating prior resection. No intracranial mass or hemorrhage. There is suggestion of diffuse effacement of the sulci throughout the cerebral hemispheres. This is concerning for early cerebral edema. The ambient cistern is also somewhat effaced. No skull fractures. The sinuses are clear.) CT Results: cerebral edema Departure - Departure Date of Disposition Decision: 12/20/16 Time of Disposition Decision: 09:03 DIAGNOSIS: Cardiopulmonary arrest Disposition: ADMITTED INPATIENT 09 Certified Medical Emergency: Emergent Condition: Critical - Critical Care Note This patient required my direct & personal management of CC.: Yes Total Time (mins): 75 Critical Care Statement: This patient required my direct personal management to treat or rule out processes, the absence of which, could potentiallly result in sudden, clinically significant life or limb threatening deterioration. Attestation - Physician/ LARISA Attestation Patient care was provided by Advanced Practice Provider:: No The physician spent face to face time with patient:: Yes Advanced Practice Provider documentation review:: Supervising physician onsite and consulted in the evaluation and care of this patient. The physician did have a face to face encounter with the patient. This chart was documented by the indicated scribe, (Rosa Orellana Scribe) and accurately reflects the services I performed and decisions made by me, Jony Neal MD, as attested by the provider's signature.
[2016-12-21] MEDS: ZYVOX 600 MG/D5W 600 MG/300 ML IVPB IV SCH ×2 (09:26→20:25)
--- NOTE | 2016-12-21 09:37 | CONSULTATION ---
DATE OF CONSULTATION: 12/21/2016 REFERRING PHYSICIAN: Renan Hamlin MD CHIEF COMPLAINT: Cardiopulmonary arrest. HISTORY OF PRESENT ILLNESS: This is a 41-year-old, female, with past medical history of Lis anomaly, congestive heart failure, ventral hernia, chronic hypoxic respiratory failure, depression, hypertension, hyperlipidemia, chronic obstructive pulmonary disease , nicotine dependence, and history of brain aneurysm, who was found unresponsive in her bed. EMS states patient was unresponsive, in asystole upon arrival and was intubated and taken to the emergency room. She received multiple rounds of epi and return of spontaneous circulation (ROSC) was achieved. She is currently intubated in the ICU. REVIEW OF SYSTEMS: Unable to obtain. PAST MEDICAL HISTORY: As mentioned in history of present illness; otherwise, noncontributory. PAST SURGICAL HISTORY: Tubal ligation and aneurysm clip. ALLERGIES: Cyclobenzaprine, lurasidone, and vancomycin. FAMILY HISTORY: Noncontributory. SOCIAL HISTORY: The patient is a current smoker. No documented history of alcohol abuse. She does smoke occasional marijuana. ACTIVE MEDICATIONS: Lovenox, Levaquin, Merrem, morphine, and Levophed. PHYSICAL EXAMINATION: Vital Signs: Temperature 99 degrees, heart rate 140, respiratory rate 28, blood pressure 133/88, oxygen saturation 100%. General: Lying in bed, intubated, family at bedside. HEENT: Normocephalic and atraumatic. ET tube in place. Cardiovascular: Tachycardic rate. S1-S2 present. Chest: Reduced entry. Abdomen: Soft. Bowel sounds present. Extremities: Trace edema noted. Neurological: Intubated and sedated. LABS AND INVESTIGATIONS: WBC 26.6, RBC 6, hemoglobin 13.9, hematocrit 49.1, platelet count 233,000. Sodium 147, potassium 3.9, chloride 97, CO2 37, anion gap 13. BUN 37 , creatinine 0.6, glucose 108. Blood gas reveals a pH 7.38, pCO2 of 70, pO2 of 68, HCL3 of 34.8, base excess of 12.8, saturated oxygen 94.8. Chest x-ray performed on 12/21/2016 shows small right-sided pleural effusion with atelectasis or infiltrates in the right base with no improvement. ASSESSMENT AND PLAN: This is a 41-year-old female with past medical history as mentioned in HPI that presented to the hospital in cardiopulmonary arrest. Respiratory failure secondarily, initial event could be respiratory failure given end stage COPD. Now has seizures with likely anoxic encephalopathy. Prognosis will heavily depend on neurological course. Return of spontaneous circulation was achieved in the ER. The patient was transported to the ICU for close monitoring. Family at the bedside and wishes to continue with current treatment and await results of the EEG. Continue ventilator management. Morphine for pain. Broad-spectrum antibiotics. DVT prophylaxis. Further recommendations pending diagnostic studies. Thank you for the courtesy of this consult. cc: Diana Fischer MD MTDD
[2016-12-21] MEDS: SODIUM CHLORIDE 0.9% INJ SCH (11:19)
[2016-12-21] MEDS: PROTONIX IV SCH (11:19)
[2016-12-21] MEDS: TYLENOL PO PRN ×2 (11:19→20:25)
--- NOTE | 2016-12-21 11:54 | PROGRESS NOTE ---
DATE: 12/21/2016 SUBJECTIVE: Today Ms. Collins continues to be pretty much the same, unresponsive, under the ventilator. The and the daughter were at the bedside at the time of the encounter. According to the daughter, she thinks the mother is a whole lot more calm today than yesterday, and they now believe that she probably can come out of this problem. OBJECTIVE: Vital Signs: The blood pressure is 133/88, pulse of 140, respiration is 20, and temperature is 98.0 degrees. General exam: Ms. Collins is a 41-year-old, female. She is in bed. She is unresponsive under the ventilator. HEENT: Mucosa is pink and moist. Anicteric. Acyanotic. Neck: Supple. Chest: Air entry is bilaterally reduced. There are some transmitted sounds from the ventilator, but there is also some diffuse posterior crepitations. Cardiovascular: Tachycardic, but no murmur, no rubs. Abdomen: Soft. There is a large umbilical hernia defect on the anterior abdominal wall. Extremities: No pedal edema. BENEFITS ANALYST: Patient continues to be comatose, unresponsive to even painful stimulation. She does have corneal reflex and she has adequate gag reflex. Pupils are reactive to light. LABORATORY DATA: WBC went up to 26.60, hemoglobin is 13.8, platelet count of 233. There is 6% of bands on peripheral smear. Chemistry: Sodium is 147, potassium is 3.7, chloride 97, bicarbonate is 27. ABG with a pH 7.38, pCO2 is 70, PaO2 is 68. REVIEW OF IMAGING STUDIES: 1. A CT scan of the head was done yesterday which shows suggestion of early cerebral edema. 2. A CTA of the neck and brain shows normal angiogram, possible cervical edema. No ventriculomegaly or herniation. There is a right pleural effusion. 3. A chest x-ray this morning shows small right-sided pleural effusions with atelectasis or infiltrates in the right base. ASSESSMENT: 1. Status post cardiac arrest, unsure of the initial rhythm since this happened at home. 2. Unresponsiveness after cardiac arrest. Suspecting Anoxic Brain Injury. Initially the family members were not sure how aggressive they want to go, so yesterday she was do not resuscitate level 2. However this morning, both the and the daughter who were at the bedside, think that Ms. Collins could potentially come out of this, so they want to make her a full code and observe her for about a week. 3. Respiratory failure. Patient is on ventilator. She does have some right- sided pleural effusion. I am not sure if this is due to heart failure. We did an echocardiogram; we are still pending the results. We are also concerned that she probably has some pneumonia, maybe aspiration. Temperatures went high and her white count spiked and she is tachycardic. 4. Sepsis likely secondary to pneumonia (possible aspiration). The patient was started on meropenem and levofloxacin was started by pulmonary medicine. I have added Zyvox to cover for possible methicillin-resistant Staphylococcus aureus, and will get infectious disease to see the patient. 5. Profound lactic acidosis on presentation, improved. 6. Cerebral edema on CT scan post cardiac arrest. This is on its own a very poor prognosis factor. The patient is being seen by neurology. An electroencephalogram was also done; we are still pending the official report. CODE STATUS: As I said, we discussed at length the code status for Ms. Collins with the and the daughter. At this point, they want to reverse the code status to full code and observe the patient for about a week before they make any further changes. PLAN: So, in general I think Ms. Collins continues to have very poor prognosis after cardiac arrest. She continues to be altered after 48 hours, not on any formal sedation. We are going to continue with the current medications, ventilatory support, gentle hydration. We will consult infectious disease for the suspected pneumonia, and the patient is likewise being seen by pulmonary medicine. Critical Time spent 45minutes. cc: Renan Hamlin MD MTDD
--- NOTE | 2016-12-21 12:43 | PROGRESS NOTE ---
DATE: 12/21/2016 SUBJECTIVE: Ms. Collins is motionless during my time at the bedside today. I did not see any of the muscle twitching and facial grimacing movement that was so prominent yesterday. She continues unresponsive. There is lateral eye movement in both directions with passive head turning. Pupils are little bit larger than yesterday and both remain sluggishly reactive to bright light. Corneal reflex is present bilaterally. Limb tone is symmetric. Plantar response is silent bilaterally. This still seems most consistent with anoxic brain injury. The EEG findings were reported yesterday. The limb twitching movement is not present now, which may be due to current medication regimen. The levetiracetam dose is 2000 mg q.12 hours. I do not have any new suggestion from neurologic standpoint today. I agree with the impression of others that prognosis is very poor. Thanks for asking me to see Ms. Collins. cc: Mathieu Gibson III, MD
--- NOTE | 2016-12-21 13:47 | EEG REPORT ---
DATE: 12/20/2016 EEG #: [id number]. COMMENT: This is a digitally recorded EEG done portably in the ICU on a 41-year-old patient with unresponsiveness, multifocal muscle jerking, facial grimace. FINDINGS: There are 0.5-1.5 second bursts of high-amplitude slowing with associated sharp wave occurring intermittently, sometimes with a 5-10 second periodicity. The EEG between these bursts shows relatively lower voltage rhythmic activity at 8-10 hertz, which is not reactive. Photic stimulation did not alter the record. There was no spontaneous variation to correlate with drowsing or sleep. The bursts of high-amplitude slowing with sharp wave were associated on several occasions with limb and body jerking. INTERPRETATION: Abnormal EEG because of unreactive rhythmic pattern and burst suppression with almost periodic discharges and prominent epileptiform features. CORRELATION: This is indicative of a diffuse encephalopathy and is consistent with recent anoxic brain injury. This EEG suggests strong tendency to seizure. cc: MD Renan Aguilar III, MD
--- NOTE | 2016-12-21 14:18 | ECHO REPORT ---
ORDER DATE: 12/20/2016 MEASUREMENTS: 1. Left ventricular end-diastolic diameter 5.0. 2. Septal thickness 0.7. 3. Posterior wall thickness 0.7. 4. Left atrium 3.4. 5. Aortic root 3.4. SUMMARY: 1. Technically difficult study due to limited acoustic window quality. 2. Aortic valve is trileaflet and opens normally on 2-dimensional images. Peak gradient across aortic valve less than 10 mmHg. Mitral valve without structural abnormality. 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 There is mild tricuspid regurgitation. Estimated systolic PA pressure by Doppler is 35 mm/Hg. The pulmonic valve was not well demonstrated. There is trace pulmonic insufficiency. The aortic root is normal size. 3. Normal left ventricular dimensions suggested. Estimated left ejection fraction appears to be approximately 25-30% in the setting of global hypokinesis. Left atrium is normal in size. Right atrium is moderately enlarged. The right ventricle appears mildly enlarged. 4. Small posterior pericardial effusion. 5. Appearance of inferior vena cava suggests elevated central venous pressure. cc: MD Renan Munoz MD
[2016-12-21] MEDS ORDERED: LASIX IV ONE (21:49)
[2016-12-22] MEDS: TYLENOL PO PRN ×2 (01:39→06:43)
[2016-12-22] MEDS: KEPPRA 2,000 MG in NS 100 ML IV SCH ×2 (02:53→14:15)
[2016-12-22] MEDS: MORPHINE IV PRN ×3 (03:08→15:18)
[2016-12-22 04:28] LABS: ALLEN TEST YES; BE 12.2 mmoll (-3.0-3.0); BLOOD TYPE ARTERIAL; DRAW SITE R RADIAL; METHB 0.4 % (0.0-1.5); O2(CT) 17.1 mL/dL (15.0-23.0); PO2(98.6) 51 mmHg (60-100); SAMPLE BLOOD; SAO2 87.9 % (95.0-100.0); SRATE 20 BPM; THB 14.2 g/dL (11.5-17.4); TVOL 450 mL; pH(98.6) 7.43 (7.35-7.45)
[2016-12-22 04:29] LABS: MODALITY VENTILATOR; PCO2(98.6) 59 mmHg (35-45)
[2016-12-22] MEDS ORDERED: VALIUM IV ONE (04:55)
[2016-12-22] MEDS: LOVENOX SUBQ SCH (05:06)
[2016-12-22] MEDS: MERREM 1 GM in NS 50 ML IV SCH ×2 (05:06→14:15)
[2016-12-22 05:12] LABS: HEMATOCRIT 45.1 % (37.0-47.0); HEMOGLOBIN 12.7 g/dL (12.0-16.0); IMM GRAN# 0.06 X1000 (0.0-0.04); IMM GRAN% 0.3 % (0.0-0.5); LYMPH# 1.12 X1000 (1.2-3.4); LYMPH% 4.8 % (20.5-51.1); MANUAL DIFF NEEDED? YES; MCH 23.2 PG (27-31); MCHC 28.2 g/dL (33-37); MCV 82.4 FL (81-99); MONO# 1.24 X1000 (0.11-0.59); MONO% 5.3 % (1.7-9.3); MPV 9.9 FL (7.4-10.4); NEUT% 89.6 % (42.2-75.2); PLT 178 X1000 (130-400); RBC 5.47 XMIL (4.2-5.4)
[2016-12-22 05:15] LABS: AGAP 10; ALBUMIN 2.7 g/dL (3.5-5.0); ALKALINE PHOSPHATASE 140 U/L (32-104); BUN 27 mg/dL (8-22); CALCIUM 8.1 mg/dL (8.8-10.2); CHLORIDE 100 mmol/L (98-107); COSMO 290; GOT 54 U/L (10-30); GPT 36 U/L (10-36); POTASSIUM 3.5 mmol/L (3.5-5.1); SODIUM 144 mmol/L (136-145); TCO2 34 mmol/L (25-35); TOTAL BILIRUBIN 0.31 mg/dL (0.20-1.00); TOTAL PROTEIN 5.5 g/dL (6.3-8.3)
[2016-12-22 05:17] LABS: LYMPHS 4 % (21-51); MONO 4 % (1-9)
--- NOTE | 2016-12-22 07:19 | Diag Imaging Result Doc PS360 ---
EXAM: CHEST-1 VIEW HISTORY: SOB TECHNIQUE: Erect AP portable at 0520 COMMENT: There is a right pleural effusion. This is decreased in volume since 12/21/2016. Endotracheal and NG tubes remain in place. The right PICC line is again noted. IMPRESSION: Improved right pleural effusion. Electronically signed by Mango oMsley 12/22/2016 7:16 AM
[2016-12-22] MEDS: LEVAQUIN 500 MG/D5W 500 MG/100 ML IVPB IV SCH (08:32)
[2016-12-22] MEDS: ZYVOX 600 MG/D5W 600 MG/300 ML IVPB IV SCH (08:33)
[2016-12-22] MEDS ORDERED: LASIX IV SCH (09:00)
--- NOTE | 2016-12-22 10:11 | CONSULTATION ---
DATE OF CONSULTATION: 12/22/2016 INDICATION: Status post cardiac arrest. HISTORY OF PRESENT ILLNESS: Ms. Collins is a 41-year-old, white female who normally follows with Dr. Levine. 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 She had a recent hospitalization from November 27 to November 30 with difficulties with hypoxemia and hypercapnic respiratory failure. She ultimately was discharged on a Medrol Dosepak as well as Lasix. She re-presented this hospitalization, on the . Was apparently found down, unresponsive at home. We are not entirely clear how long she was down for but the initial rhythm per EMS was asystole. She was brought into the ER and was apparently still in asystole. After 10 minutes of appropriate ACLS, she had what appeared to be a perfusing rhythm and sinus tachycardia. Over that time period, she has been evaluated with head CTs as well as EEGs. Head CT was suggestive of cerebral edema. The EEG was suggestive of anoxic brain injury. She had a repetition of her echocardiogram on the which suggested an EF of 25-30%. However, on review of all 3 of her echocardiograms since 2014, there does not appear to be any real significant difference. I believe the relative decrease in the EF is likely from technical issues with the echocardiogram including the patient being ventilated as well as her being significantly tachycardic during the study. Presently, she is lying in bed. No family is available. She is not responsive to verbal or physical stimulation. She does have a doll's eye reflex present. She is currently on a cooling blanket as she has been having issues with hyperthermia. PAST MEDICAL HISTORY: 1. Significant for Ebstein's anomaly. 2. Mild systolic dysfunction with EFs previously in the 40-45% range. 3. COPD. 4. History of brain abscess with drainage in December of 2007. 5. History of stroke. 6. History of tobacco and cannabis abuse. 7. Hyperlipidemia. 8. Hypertension. SOCIAL HISTORY: She does smoke. There is no history of alcohol. Apparent marijuana use. FAMILY HISTORY: Unable to be obtained secondary to the patient not being responsive and the family not being available. REVIEW OF SYSTEMS: Unable to be obtained secondary to the patient not being responsive and the family not being available. PHYSICAL EXAMINATION: Vital Signs: She has had been fairly high consistently febrile since midnight last night with T-max temperatures anywhere from 100.2-100.5. Her heart rate has been elevated in the 110s to 130s predominantly over the last 24-48 hours. Blood pressure 121/95. Her O2 saturation is 90% currently on an FiO2 of 100%. Generally: She is in no acute distress. Again, she is not responsive to any verbal or physical stimuli. HEENT: Oropharynx is moist. ET tube is in place. Eye examination: She had some ocular edema present. She has pink conjunctivae and white sclerae. Neck: Examination shows no obvious thyromegaly or thyroid tenderness. Cardiovascular: She is in a tachycardic and regular rhythm presently. This is consistent with sinus tachycardia on telemetry. She has no obvious murmurs. Extremities: She has no lower extremity edema. Her extremities are somewhat cool presently but that is secondary to the cooling blanket she has in place. Her central temperature is 101 degrees per the nurse. Chest: Has some mild coarse breath sounds. No increased work of breathing. She is not breathing over the ventilator. Abdomen: Soft. I did not hear any bowel sounds. Skin Examination: Cool in the distal extremities as detailed above. Neurological Examination and Psychiatric Examination: Essentially, the patient is not responsive to any verbal or physical stimuli. She does have a doll's eye reflex present. She has an almost pinpoint pupil on the left with a 5 mm pupil on the right. DATA: EKG on the shows sinus tachycardia, rate of 123 beats per minute. She does have evidence of right atrial enlargement on that study, consistent with her Ebstein's anomaly. Her other data including her EEG and echocardiogram were reviewed. Her laboratory data shows a white count that is elevated at 23 and has climbed since presentation. Her hematocrit is 45. Platelet count is 178,000. Her neutrophils are 92%. Her ABG has a pH of 7.4, pCO2 59, PO2 of 51. That is on an FiO2 of 100%, giving her an A-a gradient of 588 which has been pretty consistent for the last several days. Sodium 144, potassium is 3.5, BUN 27, creatinine 0.3. Her albumin level is 2.7. Her initial cardiac enzymes were negative. ProBNP minimally elevated at 398. UDS was positive for marijuana. ASSESSMENT: 1. Status post cardiac arrest with presenting rhythm of asystole but it is unclear exactly how long the patient was down. 2. Unresponsive patient, concerning for anoxic brain injury. 3. Reduced ejection fraction. PLAN: Again, as per in the discussion, I believe her reduced EF yesterday on the echocardiogram was likely not much changed from her previous echocardiograms. I believe the variation in the EF is likely due to technical issues including difficulty with obtaining an echocardiogram on an intubated patient as well as her relative tachycardia. I would not recommend any further invasive cardiac evaluation at this point. Currently, she needs supportive care as the primary team is already managing. She has been seen by neurology and there is obviously concern for anoxic brain injury as well as epileptic activity. Accordingly, this has a significantly grave prognosis. cc: Kulwinder Sharpe MD
[2016-12-22] MEDS: PROTONIX IV SCH (11:24)
[2016-12-22] MEDS: SODIUM CHLORIDE 0.9% INJ SCH (11:24)
[2016-12-22 11:36] VITALS: BP 128/94
--- NOTE | 2016-12-22 11:37 | PROGRESS NOTE ---
DATE: 12/22/2016 SUBJECTIVE: Today, Ms. Collins is completely unresponsive, comatose, with new neurological findings. PHYSICAL EXAMINATION: Vital Signs: Blood pressure is 121/93, pulse of 143, respirations are 26, temperature is 100.5 degrees. General Examination: Ms. Collins is a 41-year-old, female. She is in bed, intubated. HEENT: Mucosa is pink, slightly cyanotic in the extremities. Chest: Air entry is bilaterally reduced with some transmitted sounds from the ventilator. Cardiovascular: Regular rate and rhythm. Abdomen: Soft. Extremities: No pedal edema. DIRECTOR OF HOME ECONOMICS: Patient is completely unresponsive, comatose. The right pupil is blown, about 4 mm in diameter, and it is nonreactive. The left pupil continues to be pinpoint and sluggishly reactive. The patient does not even move to extreme painful stimulation. LABORATORY DATA: WBC is 23.54, hemoglobin is 12.7, platelet count is 178,000. Chemistry is also reviewed. Sodium is improved. All the other parameters on the electrolytes are improved. A chest x-ray done this morning shows improved right pleural effusion. ASSESSMENT: 1. Status post cardiac arrest. Unsure the initial rhythm at home. Appears patient had asystole when she came here in the emergency room. 2. Unresponsive (comatose) after cardiac arrest, suspecting anoxic brain injury. The patient, this morning, has a blown the right pupil and is completely unresponsive, which is a remarkable change from yesterday. I think the patient probably had the cerebral edema that has just gotten worse and she probably has herniated. Her neurological status continues to be dismal. 3. Respiratory failure. Patient is on a ventilator. 4. Sepsis, likely secondary to aspiration pneumonia. A chest x-ray this morning shows some improvement. We will continue with the current antibiotics. 5. Cerebral edema on initial CT scan with new neurological symptoms. I think patient probably has herniated. The and the son are leaning towards do not resuscitate at this point. However, they are awaiting on the daughter to come so that they can make a decision as a family. 6. Congestive heart failure. Ejection fraction of 25-30% with global hypokinesis. Patient has been seen by cardiology. 7. History of Ebstein anomaly. PLAN: In general, I think Ms Collins's neurological status has deteriorated. I think she probably has herniated from the cerebral edema. Her prognosis is even now poorer than it was yesterday. We will be pending on the daughter to come so the family will make a decision. I will not scan her yet until we have a decision as to what the family wants to do. I discussed this plan with the family and the nursing staff. Critical time spent is 45 minutes. cc: Renan Hamlin MD
--- NOTE | 2016-12-22 12:03 | PROGRESS NOTE ---
DATE: 12/22/2016 Ms. Collins continues unresponsive today. She has anisocoria with the right pupil 6-7 mm, slightly irregular, and not reacting to bright light. Left pupil is about 2 mm and nonreactive. Corneal reflexes are minimal but present bilaterally. There is minimal lateral eye movement with passive head turning. There is report that she has had some deterioration in her respiratory pattern. She has not had any more muscle twitching noted. IMPRESSION: Likely anoxic brain injury, likely irreversible. Question of seizure is resolved. Prognosis remains very poor. I do not have any suggestion from neurologic standpoint. Thanks for allowing me to follow Ms. Collins. cc: Mathieu Gibson III, MD
[2016-12-22] MEDS ORDERED: MORPHINE IV PRN (14:46)
--- NOTE | 2016-12-23 16:24 | Extremity Venous Study ---
PROCEDURE NAME: Venous U/S Bilateral Legs - 12/22/2016 REFERRING PHYSICIAN: Dr. Fischer. READING PHYSICIAN: Dr. Lewis. AUDIO/VIDEO TECHNICIAN: Juice. INDICATION: Respiratory failure. FINDINGS: The deep and superficial veins of both lower extremities were imaged throughout their course. They are compressible, patent and without thrombus. INTERPRETATION: No evidence of deep or superficial venous thrombosis in either lower extremity. cc: MD Diana Chavarria MD
--- NOTE | 2016-12-24 08:30 | DISCHARGE SUMMARY ---
ADMISSION DATE: 12/20/2016 DISCHARGE DATE: 12/22/2016 CONSULTATIONS: 1. Dr. Mathieu Gibson with neurology. 2. Dr. Diana Fischer with pulmonology. PERTINENT PROCEDURES: 1. Head CT suggesting early cerebral edema with effacement of CSF faces and basilar cisterns. No obvious herniation at this time, however. 2. Head and neck CT showed normal angiogram, possible cerebral edema stable from prior. No ventriculomegaly or herniation or right pleural effusion, nodular infiltrates and no lung opacities. 3. EEG is normal because of unreactive rhythmic pattern and bursts of suppression with almost periodic discharges and prominent epileptiform features indicative of diffuse encephalopathy and is consistent with recent anoxic brain injury. 4. Echocardiogram showed an EF of 25% to 30% with global hypokinesis. DISCHARGE DIAGNOSES: 1. Status post cardiac arrest. Unsure of initial rhythm at home. She was in asystole when she arrived to the emergency department. Unclear exactly how long the patient was down. 2. Unresponsiveness after cardiac arrest. Electroencephalogram suggestive of anoxic brain injury on 12/22. The patient has a blown right pupil is completely unresponsive. Unremarkable change from 12/21, except the patient probably had herniated. Family made the decision to withdraw care at 1515 hours. She was extubated at 1525 and, at 1539, the patient lucero 'd down, then went into asystole and was then pronounced. 3. Respiratory failure. Patient had been on a ventilator since admission. 4. Sepsis secondary to aspiration pneumonia. 5. Cerebral edema on the initial CT with new neurological symptoms, probable herniation. Family did make her a [id number] and withdrew care. 6. Congestive heart failure with an ejection fraction of 25% to 30% with global hypokinesis. 7. History of [place] anomaly. HOSPITAL COURSE: Ms. Collins was an unfortunate 41-year-old, female, well known to our service with a history of Lis's anomaly with profound congestive heart failure with a known EF of 40%. She was in her normal state of health up until around 4:30 in the morning. Her reports that she woke up, gave him a hug on his way out to work and went back to bed. An hour and a half later, her son found her in the bed minimally responsive and called 911. EMS reports that they arrived on the scene, and the patient was unresponsive in asystole. She was intubated en route to the hospital. ACLS protocols were initiated. She received multiple rounds of epinephrine in the ED where she had return of spontaneous circulation that was achieved with antiarrhythmic drugs. The head CT showed suggestion of early cerebral edema, effacement of the CSF faces and basilar cisterns. ABG was noted to show profound respiratory acidosis. Initial lactate was 16. Patient's prognosis at the time of her admission was extremely poor. The family had been made aware, the patient remained a full code and was moved to the ICU. She was having myoclonic jerking suggestive of anoxic brain injury. Neurology was consulted and, along with pulmonology, followed her neuro status very closely, as well as started her on nebulizers and aggressive pulmonary toilet. They aggressively resuscitated with IV fluids and vasopressors. She did undergo an EEG that was consistent with an anoxic brain injury. For her jerking, she was initiated on Keppra and she was started on IV antibiotics broad-spectrum. On the morning of 12/22/2016, the patient had a blown right pupil, remained completely unresponsive. This was a remarkable change from 12/21. [place] that she had probably herniated. Dr. Hamlin had a long conversation with the and the son. They discussed it with the daughter. They decided to withdraw care at 1515 hours. At 1525 hours, the patient was extubated by respiratory. She was given 2 of morphine and placed on non-rebreather for comfort. At 1539 hours, patient lucero 'd down and went into asystole where she had no respiration or oxygen saturation or pulse that could be palpated. She was pronounced at 1539 hours. Dictated by YARON Crawford for Renan Hamlin MD cc: Renan Hamlin MD
== END 2016-12-22 15:39 | disposition expired ==
LOC: ED 08:14 → ICU 10:19
PROVIDERS: ATTEND Internal Medicine